=== PATIENT | male | born 1955 | race Caucasian/White ===

== ENCOUNTER 2021-01-17 02:18 | Inpatient (IN) ==
[2021-01-17 03:10] LABS: Basophils # 0.1 K/mcL (0.0-0.2); Basophils % 0.7 %; Eosinophils # 0.3 K/mcL (0.0-0.6); Eosinophils % 2.6 %; Hematocrit 33.9 % (37.5-50.1); Hemoglobin 10.9 g/dL (12.9-16.9); Immature Granulocytes % 1.5 % (0-4); Lymphocytes # 0.7 K/mcL (0.6-4.6); Lymphocytes % 6.3 %; Mean Corpuscular HGB Conc 32.2 g/dL (31.6-35.5); Mean Corpuscular Hemoglobin 29.5 pg (28.0-33.3); Mean Corpuscular Volume 91.9 fL (83.0-100.0); Mean Platelet Volume 8.6 fL (9.4-12.4); Monocytes # 1.2 K/mcL (0.0-1.3); Monocytes % 10.1 %; Neutrophils # 9.2 K/mcL (1.6-8.9); Platelet Count 300 K/mcL (140-400); Red Blood Count 3.69 M/mcL (4.19-5.50); Segmented Neutrophils % 78.8 %; White Blood Count 11.6 K/mcL (4.3-11.1)
[2021-01-17] MEDS ORDERED: Isovue-370 500 ML BOTTLE IVP ONE (03:13)
[2021-01-17 03:35] LABS: BUN/Creatinine Ratio 15 (6-26); Blood Urea Nitrogen 17 mg/dL (8-23); Calcium 9.2 mg/dL (8.6-10.3); Carbon Dioxide 23 mEq/L (23-29); Chloride 98 mEq/L (98-107); Glucose 240 mg/dL (70-105); Osmolality,Calculated 283 (280-300); Potassium 3.8 mEq/L (3.5-5.1); Sodium 132 mEq/L (136-145); Troponin I < 0.03 ng/mL (< 0.04); eGFR For African Americans > 60 (> 60); eGFR For Non-African Americans > 60 (> 60)
[2021-01-17] MEDS ORDERED: Piperacillin/Tazobactam 3.375 GM in 0.9 % Sodium Chloride Mini Bag 100 ML IVPB ONE (06:05)
[2021-01-17] MEDS ORDERED: Azithromycin 500 MG in 0.9 % Sodium Chloride 250 ML IVPB ONE (06:05)
[2021-01-17] MEDS ORDERED: Vancomycin 2,000 MG/520 ML IV.SOLN IVPB ONE (06:05)
[2021-01-17] MEDS ORDERED: Naloxone 0.4 MG/ML INJ IVP PRN (08:58)
[2021-01-17] MEDS ORDERED: Vancomycin (wt based) 1,000 MG VIAL IVPB SCH (09:00)
[2021-01-17] MEDS ORDERED: Ipratropium/Albuterol Neb 3 ML IH PRN (09:06)
[2021-01-17] MEDS ORDERED: *HR* Midazolam HCl 2 MG/2 ML VIAL IVP ONE (09:28)
[2021-01-17] MEDS ORDERED: *HR* Etomidate 20 MG/10 ML AMPUL IVP ONE (09:28)
[2021-01-17] MEDS ORDERED: *HR* Rocuronium Bromide 50 MG/5 ML VIAL IVP ONE (09:28)
[2021-01-17] MEDS ORDERED: *HR* Midazolam HCl 5 MG/5 ML VIAL IVP ONE (09:28)
[2021-01-17] MEDS ORDERED: *HR* Propofol 200 MG/20 ML VIAL IVP ONE (09:28)
[2021-01-17] MEDS ORDERED: Perflutren Lipid Microsphere 1.3 ML in 0.9 % Sodium Chloride 8.7 ML IVP PRN (10:08)
[2021-01-17 10:48] LABS: ABG Base Excess 0 mEq/L (-2 to 3); ABG HCO3 24 mEq/L (21-27); ABG Oxygen Saturation 96 % (95-98); ABG PCO2 36 mmHg (35-45); ABG PH 7.43 pH Units (7.32-7.45); ABG PO2 81 mmHg (85-104); ABG TCO2 25 mEq/L (20-26); Blood Gas Modality AVAPS; Blood Gas VT 500 cc
[2021-01-17] MEDS ORDERED: Furosemide 40 MG/4 ML VIAL ONE (12:04)
[2021-01-17] MEDS: Furosemide 40 MG/4 ML VIAL IVP ONE (12:06)
[2021-01-17 15:03] LABS: Adenovirus Not Detected (Not Detect); Bordetella Pertussis Not Detected (Not Detect); Chlamydophila pneumoniae Not Detected (Not Detect); Coronavirus 229E Not Detected (Not Detect); Coronavirus HKU1 Not Detected (Not Detect); Coronavirus NL63 Not Detected (Not Detect); Coronavirus OC43 Not Detected (Not Detect); Human Metapneumovirus Not Detected (Not Detect); Human Rhinovirus/Enterovirus Not Detected (Not Detect); Influenza A Subtype 2009 H1 Not Detected (Not Detect); Influenza B Not Detected (Not Detect); Mycoplasma pneumoniae Not Detected (Not Detect); Parainfluenza Virus 1 Not Detected (Not Detect); Parainfluenza Virus 2 Not Detected (Not Detect); Parainfluenza Virus 3 Not Detected (Not Detect); Parainfluenza Virus 4 Not Detected (Not Detect); Respiratory Syncytial Virus Not Detected (Not Detect); SARS-CoV-2 Not Detected (Not Detect)
[2021-01-17] MEDS: Acetaminophen 325 MG TABLET PO PRN ×2 (16:07→23:31)
[2021-01-17] MEDS: Piperacillin/Tazobactam 3.375 GM in 0.9 % Sodium Chloride Mini Bag 100 ML IVPB SCH ×2 (16:08→23:32)
[2021-01-17] MEDS ORDERED: Albuterol 2.5 MG/3 ML NEBULIZER IH PRN (16:11)
[2021-01-17] MEDS: Famotidine 20 MG TABLET PO SCH (16:57)
[2021-01-17] MEDS: *HR* Heparin 5,000 UNIT/ML VIAL SQ SCH (17:23)
[2021-01-17] MEDS: amLODIPine 5 MG TABLET PO SCH (19:58)
[2021-01-17] MEDS: lisinopriL 10 MG TABLET PO SCH (19:58)
[2021-01-17] MEDS: traZODone 50 MG TABLET PO SCH (19:58)
[2021-01-17] MEDS: Vancomycin 1,750 MG/517.5 ML IV.SOLN IVPB SCH (21:24)
[2021-01-17] MEDS: Ipratropium/Albuterol Neb 3 ML IH SCH (21:54)
[2021-01-18] MEDS: Ipratropium/Albuterol Neb 3 ML IH SCH ×4 (03:49→21:57)
[2021-01-18 04:16] LABS: Basophils # 0.1 K/mcL (0.0-0.2); Basophils % 0.7 %; Eosinophils # 0.2 K/mcL (0.0-0.6); Eosinophils % 1.7 %; Hematocrit 32.3 % (37.5-50.1); Hematocrit 32.7 % (37.5-50.1); Hemoglobin 10.4 g/dL (12.9-16.9); Hemoglobin 10.5 g/dL (12.9-16.9); Immature Granulocytes % 1.2 % (0-4); Lymphocytes % 9.3 %; Mean Corpuscular HGB Conc 32.1 g/dL (31.6-35.5); Mean Corpuscular HGB Conc 32.2 g/dL (31.6-35.5); Mean Corpuscular Hemoglobin 29.6 pg (28.0-33.3); Mean Corpuscular Hemoglobin 30.4 pg (28.0-33.3); Mean Corpuscular Volume 92.1 fL (83.0-100.0); Mean Corpuscular Volume 94.4 fL (83.0-100.0); Mean Platelet Volume 8.3 fL (9.4-12.4); Mean Platelet Volume 8.4 fL (9.4-12.4); Monocytes % 9.2 %; Neutrophils # 8.5 K/mcL (1.6-8.9); Platelet Count 299 K/mcL (140-400); Platelet Count 305 K/mcL (140-400); Red Blood Count 3.42 M/mcL (4.19-5.50); Red Blood Count 3.55 M/mcL (4.19-5.50); Red Cell Distribution Width 14.2 % (11.5-14.5); Red Cell Distribution Width 14.3 % (11.5-14.5); Segmented Neutrophils % 77.9 %; White Blood Count 10.9 K/mcL (4.3-11.1); White Blood Count 11.1 K/mcL (4.3-11.1)
[2021-01-18 04:26] LABS: INR 1.4; Prothrombin Time 16.1 Seconds (9.4-12.1)
[2021-01-18 04:30] LABS: VBG Ionized Calcium 1.11 mmol/L (1.15-1.35)
[2021-01-18 04:32] LABS: D-Dimer 1595 ng/mLFEU (0-500)
[2021-01-18 04:34] LABS: Alanine Aminotransferase 14 Units/L (7-52); Albumin/Globulin Ratio 0.8 (1.1-2.2); Alkaline Phosphatase 45 Units/L (34-104); Aspartate Amino Transferase 14 Units/L (13-39); BUN/Creatinine Ratio 14 (6-26); Bilirubin,Total 0.7 mg/dL (0.3-1.0); Blood Urea Nitrogen 16 mg/dL (8-23); Calcium 8.9 mg/dL (8.6-10.3); Carbon Dioxide 26 mEq/L (23-29); Chloride 100 mEq/L (98-107); Fibrinogen > 1000 mg/dL (169-393); Globulin 3.6 g/dL (2.4-3.5); Glucose 99 mg/dL (70-105); Osmolality,Calculated 279 (280-300); Potassium 4.2 mEq/L (3.5-5.1); Sodium 134 mEq/L (136-145); Total Protein 6.6 g/dL (6.4-8.9); eGFR For African Americans > 60 (> 60); eGFR For Non-African Americans > 60 (> 60)
[2021-01-18 04:36] LABS: BUN/Creatinine Ratio 13 (6-26); Blood Urea Nitrogen 16 mg/dL (8-23); Calcium 8.9 mg/dL (8.6-10.3); Carbon Dioxide 25 mEq/L (23-29); Chloride 100 mEq/L (98-107); Glucose 98 mg/dL (70-105); Osmolality,Calculated 279 (280-300); Potassium 4.2 mEq/L (3.5-5.1); Sodium 134 mEq/L (136-145); eGFR For African Americans > 60 (> 60); eGFR For Non-African Americans > 60 (> 60)
[2021-01-18 04:56] LABS: Alanine Aminotransferase 13 Units/L (7-52); Albumin 2.9 g/dL (3.5-5.7); Albumin/Globulin Ratio 0.8 (1.1-2.2); Alkaline Phosphatase 45 Units/L (34-104); Aspartate Amino Transferase 14 Units/L (13-39); Bilirubin,Direct 0.2 mg/dL (0.0-0.2); Bilirubin,Indirect 0.4 mg/dL (0.0-1.0); Bilirubin,Total 0.6 mg/dL (0.3-1.0); C-Reactive Protein > 300 mg/L (Less than 10); Globulin 3.5 g/dL (2.4-3.5); Lactate Dehydrogenase 233 Units/L (140-271); Magnesium 1.9 mg/dL (1.6-2.6); Phosphorous 3.8 mg/dL (2.7-4.5); Total Protein 6.4 g/dL (6.4-8.9)
[2021-01-18] MEDS: *HR* Heparin 5,000 UNIT/ML VIAL SQ SCH ×2 (05:31→21:47)
[2021-01-18] MEDS: Azithromycin 500 MG in 0.9 % Sodium Chloride 250 ML IVPB SCH (05:33)
[2021-01-18] MEDS ORDERED: Furosemide 40 MG/4 ML VIAL IVP ONE (07:00)
[2021-01-18] MEDS ORDERED: *HR* Midazolam HCl 5 MG/5 ML VIAL IVP ONE ×2 (08:01→08:14)
[2021-01-18] MEDS ORDERED: Lidocaine -MPF 2% 5 ML VIAL ONE (08:18)
[2021-01-18] MEDS: Piperacillin/Tazobactam 3.375 GM in 0.9 % Sodium Chloride Mini Bag 100 ML IVPB SCH ×3 (09:25→23:36)
[2021-01-18] MEDS: Furosemide 40 MG/4 ML VIAL IVP ONE (09:26)
[2021-01-18] MEDS: lisinopriL 10 MG TABLET PO SCH (09:26)
[2021-01-18] MEDS: Famotidine 20 MG TABLET PO SCH (09:26)
[2021-01-18] MEDS: Multivit/Ca/Min/Fe/FA 1 TAB TABLET PO SCH (09:26)
[2021-01-18] MEDS: Dexmedetomidine HCl 400 MCG/100 ML MLS IVC SCH ×2 (09:27→21:44)
[2021-01-18] MEDS: Aspirin Enteric Coated 81 MG Tablet PO SCH (09:27)
[2021-01-18] MEDS: amLODIPine 5 MG TABLET PO SCH (09:30)
[2021-01-18] MEDS: Acetaminophen 325 MG TABLET PO PRN ×3 (09:40→23:08)
[2021-01-18 14:38] LABS: Appearance of Body Fluid Cloudy (Clear); Volume of Body Fluid 19 mL
[2021-01-18] MEDS ORDERED: Saline Nasal Spray 44 ML BOTTLE NS PRN (15:49)
[2021-01-18] MEDS: traZODone 50 MG TABLET PO SCH (19:31)
[2021-01-18] MEDS: Vancomycin 1,750 MG/517.5 ML IV.SOLN IVPB SCH (21:43)
[2021-01-19] MEDS: Ipratropium/Albuterol Neb 3 ML IH SCH ×4 (03:28→22:04)
[2021-01-19 03:55] LABS: ABG Base Excess -2 mEq/L (-2 to 3); ABG HCO3 24 mEq/L (21-27); ABG Oxygen Saturation 87 % (95-98); ABG PCO2 46 mmHg (35-45); ABG PH 7.33 pH Units (7.32-7.45); ABG PO2 57 mmHg (85-104); ABG TCO2 25 mEq/L (20-26); Blood Gas VT 500 cc
[2021-01-19] MEDS ORDERED: Dexamethasone 4 MG/ML VIAL IVP ONE (03:55)
[2021-01-19] MEDS ORDERED: Furosemide 40 MG/4 ML VIAL IVP ONE (04:07)
[2021-01-19] MEDS ORDERED: Furosemide 40 MG/4 ML VIAL ONE (04:11)
[2021-01-19] MEDS ORDERED: 0.9 % Sodium Chloride 1,000 ML ONE (04:16)
[2021-01-19 04:21] LABS: Basophils # 0.1 K/mcL (0.0-0.2); Basophils % 0.8 %; Eosinophils # 0.2 K/mcL (0.0-0.6); Eosinophils % 1.7 %; Hematocrit 35.3 % (37.5-50.1); Hemoglobin 11.2 g/dL (12.9-16.9); Immature Granulocytes % 1.3 % (0-4); Lymphocytes # 1.3 K/mcL (0.6-4.6); Lymphocytes % 9.2 %; Mean Corpuscular HGB Conc 31.7 g/dL (31.6-35.5); Mean Corpuscular Hemoglobin 29.8 pg (28.0-33.3); Mean Corpuscular Volume 93.9 fL (83.0-100.0); Mean Platelet Volume 8.4 fL (9.4-12.4); Monocytes # 1.5 K/mcL (0.0-1.3); Monocytes % 10.4 %; Neutrophils # 11.1 K/mcL (1.6-8.9); Platelet Count 386 K/mcL (140-400); Red Blood Count 3.76 M/mcL (4.19-5.50); Red Cell Distribution Width 14.4 % (11.5-14.5); Segmented Neutrophils % 76.6 %; White Blood Count 14.5 K/mcL (4.3-11.1)
[2021-01-19] MEDS ORDERED: *HR* Midazolam HCl 5 MG/5 ML VIAL IVP ONE (04:23)
[2021-01-19 04:31] LABS: INR 1.4; Prothrombin Time 15.8 Seconds (9.4-12.1)
[2021-01-19 04:39] LABS: C-Reactive Protein > 300 mg/L (Less than 10); Lactate Dehydrogenase 335 Units/L (140-271); Magnesium 1.8 mg/dL (1.6-2.6)
[2021-01-19] MEDS: FentaNYL (PF) 1,000 MCG/100 ML IV.SOLN IVC SCH ×4 (04:43→20:37)
[2021-01-19 05:42] LABS: ABG Base Excess -1 mEq/L (-2 to 3); ABG HCO3 27 mEq/L (21-27); ABG Oxygen Saturation 90 % (95-98); ABG PCO2 63 mmHg (35-45); ABG PH 7.25 pH Units (7.32-7.45); ABG PO2 71 mmHg (85-104); ABG TCO2 29 mEq/L (20-26); Blood Gas Modality ASSIST CONTROL; Blood Gas VT 500 cc
[2021-01-19] MEDS: Cisatracurium 200 MG in 0.9 % Sodium Chloride 180 ML IVC SCH (06:22)
[2021-01-19] MEDS: *HR* Heparin 5,000 UNIT/ML VIAL SQ SCH ×3 (06:50→22:19)
[2021-01-19] MEDS: Azithromycin 500 MG in 0.9 % Sodium Chloride 250 ML IVPB SCH (06:50)
[2021-01-19] MEDS: Aspirin Enteric Coated 81 MG Tablet PO SCH (07:43)
[2021-01-19] MEDS: Chlorhexidine Rinse 15 ML MOUTHWASH MM SCH ×2 (07:43→19:36)
[2021-01-19] MEDS: Famotidine 20 MG TABLET PO SCH (07:43)
[2021-01-19] MEDS: Pantoprazole 40 MG VIAL IVP SCH (07:43)
[2021-01-19] MEDS: Multivit/Ca/Min/Fe/FA 1 TAB TABLET PO SCH (07:43)
[2021-01-19] MEDS: Piperacillin/Tazobactam 3.375 GM in 0.9 % Sodium Chloride Mini Bag 100 ML IVPB SCH ×2 (07:44→17:31)
[2021-01-19] MEDS: Artificial Tears SOLN 15 ML BOTTLE BOTH EYES SCH ×4 (07:45→21:28)
[2021-01-19] MEDS: Dexamethasone 4 MG/ML VIAL IVP SCH (09:04)
[2021-01-19] MEDS: Dexmedetomidine HCl 400 MCG/100 ML MLS IVC SCH ×2 (09:05→19:36)
[2021-01-19] MEDS: Norepinephrine 4 MG/254 ML IV.SOLN IVC SCH ×2 (09:16→20:15)
[2021-01-19 12:00] LABS: BUN/Creatinine Ratio 16 (6-26); Blood Urea Nitrogen 23 mg/dL (8-23); Calcium 8.7 mg/dL (8.6-10.3); Carbon Dioxide 22 mEq/L (23-29); Chloride 98 mEq/L (98-107); Glucose 104 mg/dL (70-105); Osmolality,Calculated 288 (280-300); Potassium 4.2 mEq/L (3.5-5.1); Sodium 137 mEq/L (136-145); eGFR For African Americans 59 (> 60); eGFR For Non-African Americans 49 (> 60)
[2021-01-19] MEDS: traZODone 50 MG TABLET PO SCH (19:36)
[2021-01-19] MEDS: Vancomycin 1,750 MG/517.5 ML IV.SOLN IVPB SCH (22:19)
[2021-01-20] MEDS: Piperacillin/Tazobactam 3.375 GM in 0.9 % Sodium Chloride Mini Bag 100 ML IVPB SCH ×4 (00:28→23:50)
[2021-01-20] MEDS: Artificial Tears SOLN 15 ML BOTTLE BOTH EYES SCH ×7 (00:28→23:50)
[2021-01-20] MEDS: FentaNYL (PF) 2,500 MCG/50 ML IV.SOLN IVC SCH ×3 (02:08→20:08)
[2021-01-20] MEDS: Ipratropium/Albuterol Neb 3 ML IH SCH ×4 (03:48→21:35)
[2021-01-20 04:06] LABS: Basophils % 0.2 %; Eosinophils % 0.2 %; Hematocrit 28.1 % (37.5-50.1); Hemoglobin 8.8 g/dL (12.9-16.9); Immature Granulocytes % 1.4 % (0-4); Immature Platelets 2.1 % (1.1-6.1); Lymphocytes # 0.4 K/mcL (0.6-4.6); Lymphocytes % 3.7 %; Mean Corpuscular HGB Conc 31.3 g/dL (31.6-35.5); Mean Corpuscular Hemoglobin 29.6 pg (28.0-33.3); Mean Corpuscular Volume 94.6 fL (83.0-100.0); Mean Platelet Volume 9.3 fL (9.4-12.4); Monocytes # 0.5 K/mcL (0.0-1.3); Monocytes % 4.2 %; Platelet Count 282 K/mcL (140-400); Red Blood Count 2.97 M/mcL (4.19-5.50); Red Cell Distribution Width 14.2 % (11.5-14.5); Segmented Neutrophils % 90.3 %
[2021-01-20 04:14] LABS: INR 1.2; Prothrombin Time 14.3 Seconds (9.4-12.1)
[2021-01-20 04:21] LABS: Neutrophils # 10.8 K/mcL (1.6-8.9)
[2021-01-20 04:22] LABS: Phosphorous 5.6 mg/dL (2.7-4.5); Platelet Estimate Normal (Normal)
[2021-01-20 04:23] LABS: ABG Base Excess -1 mEq/L (-2 to 3); ABG HCO3 27 mEq/L (21-27); ABG Oxygen Saturation 100 % (95-98); ABG PCO2 58 mmHg (35-45); ABG PH 7.27 pH Units (7.32-7.45); ABG PO2 255 mmHg (85-104); ABG TCO2 28 mEq/L (20-26); Blood Gas Modality ASSIST CONTROL; Blood Gas VT 480 cc
[2021-01-20] MEDS: Cisatracurium 200 MG in 0.9 % Sodium Chloride 180 ML IVC SCH (05:50)
[2021-01-20] MEDS: *HR* Heparin 5,000 UNIT/ML VIAL SQ SCH ×3 (06:08→21:11)
[2021-01-20] MEDS: Azithromycin 500 MG in 0.9 % Sodium Chloride 250 ML IVPB SCH (06:08)
[2021-01-20 06:23] LABS: Calcium 8.5 mg/dL (8.6-10.3); Potassium 4.3 mEq/L (3.5-5.1)
[2021-01-20] MEDS: Pantoprazole 40 MG VIAL IVP SCH (07:59)
[2021-01-20] MEDS: Chlorhexidine Rinse 15 ML MOUTHWASH MM SCH ×2 (08:00→19:26)
[2021-01-20] MEDS: Dexamethasone 4 MG/ML VIAL IVP SCH (08:00)
[2021-01-20] MEDS: Aspirin Enteric Coated 81 MG Tablet PO SCH (08:00)
[2021-01-20] MEDS: Multivit/Ca/Min/Fe/FA 1 TAB TABLET PO SCH (08:01)
[2021-01-20] MEDS: Famotidine 20 MG TABLET PO SCH (08:01)
[2021-01-20] MEDS ORDERED: Perflutren Lipid Microsphere 1.3 ML in 0.9 % Sodium Chloride 8.7 ML IVP PRN (10:10)
[2021-01-20] MEDS: Doxycycline 100 MG in 0.9 % Sodium Chloride Mini Bag 100 ML IVPB SCH ×2 (11:36→22:20)
[2021-01-20] MEDS: WATER IVPB SCH ×2 (11:46→17:23)
[2021-01-20] MEDS: D5 IVPB SCH ×2 (11:46→17:23)
[2021-01-20] MEDS: TRIMETH IVPB SCH ×2 (11:46→17:23)
[2021-01-20] MEDS: SULFAMETHOXAZOLE IVPB SCH ×2 (11:46→17:23)
[2021-01-20] MEDS ORDERED: *HR* Dextrose 50 % in Water (Vial) 50 ML VIAL IVP PRN (14:16)
[2021-01-20] MEDS ORDERED: Dextrose Gel 15 GM/37.5 ML TUBE PO PRN ×2 (14:16)
[2021-01-20] MEDS ORDERED: D5% in Water 1,000 ML IVC PRN (14:16)
[2021-01-20] MEDS: MethylPREDNISolone 40 MG/ML VIAL IVP SCH ×2 (15:50→23:51)
[2021-01-20] MEDS: Insulin LISPRO 300 UNITS/3 ML VIAL SUBQ SCH ×3 (17:21→23:51)
[2021-01-20] MEDS ORDERED: WATER IVPB SCH (18:00)
[2021-01-20] MEDS ORDERED: SULFAMETHOXAZOLE IVPB SCH (18:00)
[2021-01-20] MEDS ORDERED: TRIMETH IVPB SCH (18:00)
[2021-01-20] MEDS ORDERED: D5 IVPB SCH (18:00)
[2021-01-20] MEDS ORDERED: MethylPREDNISolone 40 MG/ML VIAL IVP SCH (18:00)
[2021-01-20] MEDS: traZODone 50 MG TABLET PO SCH (19:26)
[2021-01-20] MEDS: Vancomycin 1,750 MG/517.5 ML IV.SOLN IVPB SCH (22:20)
[2021-01-20] MEDS: Dexmedetomidine HCl 400 MCG/100 ML MLS IVC SCH (22:30)
[2021-01-21] MEDS: SULFAMETHOXAZOLE IVPB SCH ×3 (03:09→17:36)
[2021-01-21] MEDS: D5 IVPB SCH ×3 (03:09→17:36)
[2021-01-21] MEDS: WATER IVPB SCH ×3 (03:09→17:36)
[2021-01-21] MEDS: TRIMETH IVPB SCH ×3 (03:09→17:36)
[2021-01-21] MEDS: Ipratropium/Albuterol Neb 3 ML IH SCH ×4 (03:29→21:42)
[2021-01-21 04:23] LABS: Basophils % 0.1 %; Hematocrit 27.8 % (37.5-50.1); Hemoglobin 8.8 g/dL (12.9-16.9); Immature Granulocytes % 1.2 % (0-4); Lymphocytes # 0.5 K/mcL (0.6-4.6); Lymphocytes % 2.9 %; Mean Corpuscular HGB Conc 31.7 g/dL (31.6-35.5); Mean Corpuscular Hemoglobin 30.4 pg (28.0-33.3); Mean Corpuscular Volume 96.2 fL (83.0-100.0); Mean Platelet Volume 8.8 fL (9.4-12.4); Monocytes # 0.5 K/mcL (0.0-1.3); Monocytes % 2.9 %; Neutrophils # 14.4 K/mcL (1.6-8.9); Platelet Count 322 K/mcL (140-400); Red Blood Count 2.89 M/mcL (4.19-5.50); Red Cell Distribution Width 14.1 % (11.5-14.5); Segmented Neutrophils % 92.9 %; White Blood Count 15.5 K/mcL (4.3-11.1)
[2021-01-21 04:36] LABS: ABG Base Excess -2 mEq/L (-2 to 3); ABG HCO3 26 mEq/L (21-27); ABG Oxygen Saturation 93 % (95-98); ABG PCO2 60 mmHg (35-45); ABG PH 7.24 pH Units (7.32-7.45); ABG PO2 82 mmHg (85-104); ABG TCO2 27 mEq/L (20-26); Blood Gas Modality ASSIST CONTROL; Blood Gas VT 480 cc
[2021-01-21 04:43] LABS: Calcium 8.2 mg/dL (8.6-10.3); Magnesium 3.2 mg/dL (1.6-2.6); Phosphorous 3.4 mg/dL (2.7-4.5); Potassium 3.3 mEq/L (3.5-5.1)
[2021-01-21] MEDS: Insulin LISPRO 300 UNITS/3 ML VIAL SUBQ SCH ×7 (05:33→23:23)
[2021-01-21] MEDS: Artificial Tears SOLN 15 ML BOTTLE BOTH EYES SCH ×6 (05:33→23:23)
[2021-01-21] MEDS: Cisatracurium 200 MG in 0.9 % Sodium Chloride 180 ML IVC SCH (05:35)
[2021-01-21] MEDS: *HR* Heparin 5,000 UNIT/ML VIAL SQ SCH ×3 (05:35→19:31)
[2021-01-21] MEDS: Norepinephrine 4 MG/254 ML IV.SOLN IVC SCH ×4 (06:16→21:59)
[2021-01-21] MEDS: MethylPREDNISolone 40 MG/ML VIAL IVP SCH ×3 (08:39→23:23)
[2021-01-21] MEDS: Chlorhexidine Rinse 15 ML MOUTHWASH MM SCH ×2 (08:39→19:30)
[2021-01-21] MEDS: Pantoprazole 40 MG VIAL IVP SCH (08:40)
[2021-01-21] MEDS: Piperacillin/Tazobactam 3.375 GM in 0.9 % Sodium Chloride Mini Bag 100 ML IVPB SCH ×3 (08:40→23:24)
[2021-01-21] MEDS: Aspirin 81 MG TAB.CHEW GTUBE SCH (08:40)
[2021-01-21] MEDS: Multivit/Ca/Min/Fe/FA 1 TAB TABLET PO SCH (08:40)
[2021-01-21] MEDS: Doxycycline 100 MG in 0.9 % Sodium Chloride Mini Bag 100 ML IVPB SCH ×2 (09:51→19:31)
[2021-01-21] MEDS ORDERED: *HR* Etomidate 20 MG/10 ML AMPUL IVP ONE (09:51)
[2021-01-21] MEDS: FentaNYL (PF) 2,500 MCG/50 ML IV.SOLN IVC SCH (11:13)
[2021-01-21] MEDS: Dexmedetomidine HCl 400 MCG/100 ML MLS IVC SCH (13:19)
[2021-01-21 17:24] LABS: ABG Base Excess -3 mEq/L (-2 to 3); ABG HCO3 25 mEq/L (21-27); ABG Oxygen Saturation 96 % (95-98); ABG PCO2 60 mmHg (35-45); ABG PH 7.22 pH Units (7.32-7.45); ABG PO2 98 mmHg (85-104); ABG TCO2 27 mEq/L (20-26); Blood Gas Modality AF; Blood Gas VT 480 cc
[2021-01-21] MEDS: traZODone 50 MG TABLET PO SCH (19:30)
[2021-01-21 19:33] LABS: ABG Base Excess -4 mEq/L (-2 to 3); ABG HCO3 23 mEq/L (21-27); ABG Oxygen Saturation 96 % (95-98); ABG PCO2 50 mmHg (35-45); ABG PH 7.28 pH Units (7.32-7.45); ABG PO2 91 mmHg (85-104); ABG TCO2 25 mEq/L (20-26); Blood Gas Modality ASSIST CONTROL; Blood Gas VT 480 cc
[2021-01-22] MEDS: Dexmedetomidine HCl 400 MCG/100 ML MLS IVC SCH ×3 (00:35→23:07)
[2021-01-22] MEDS: WATER IVPB SCH (03:01)
[2021-01-22] MEDS: TRIMETH IVPB SCH (03:01)
[2021-01-22] MEDS: SULFAMETHOXAZOLE IVPB SCH (03:01)
[2021-01-22] MEDS: D5 IVPB SCH (03:01)
[2021-01-22] MEDS: Insulin LISPRO 300 UNITS/3 ML VIAL SUBQ SCH ×6 (03:25→23:39)
[2021-01-22] MEDS: FentaNYL (PF) 2,500 MCG/50 ML IV.SOLN IVC SCH ×2 (03:25→20:05)
[2021-01-22] MEDS: Artificial Tears SOLN 15 ML BOTTLE BOTH EYES SCH ×6 (03:26→23:07)
[2021-01-22] MEDS: Ipratropium/Albuterol Neb 3 ML IH SCH ×4 (03:39→22:40)
[2021-01-22 03:44] LABS: Basophils % 0.1 %; Hematocrit 26.4 % (37.5-50.1); Hemoglobin 8.6 g/dL (12.9-16.9); Immature Granulocytes % 1.3 % (0-4); Lymphocytes # 0.5 K/mcL (0.6-4.6); Lymphocytes % 3.6 %; Mean Corpuscular HGB Conc 32.6 g/dL (31.6-35.5); Mean Corpuscular Hemoglobin 30.4 pg (28.0-33.3); Mean Corpuscular Volume 93.3 fL (83.0-100.0); Mean Platelet Volume 8.8 fL (9.4-12.4); Monocytes # 0.5 K/mcL (0.0-1.3); Monocytes % 4.1 %; Neutrophils # 11.7 K/mcL (1.6-8.9); Platelet Count 299 K/mcL (140-400); Red Blood Count 2.83 M/mcL (4.19-5.50); Red Cell Distribution Width 14.5 % (11.5-14.5); Segmented Neutrophils % 90.9 %; White Blood Count 12.8 K/mcL (4.3-11.1)
[2021-01-22 04:02] LABS: ABG Base Excess -2 mEq/L (-2 to 3); ABG HCO3 25 mEq/L (21-27); ABG Oxygen Saturation 98 % (95-98); ABG PCO2 49 mmHg (35-45); ABG PH 7.32 pH Units (7.32-7.45); ABG PO2 109 mmHg (85-104); ABG TCO2 27 mEq/L (20-26); Blood Gas Modality ASSIST CONTROL; Blood Gas VT 480 cc
[2021-01-22 04:03] LABS: Albumin 2.7 g/dL (3.5-5.7); Albumin/Globulin Ratio 0.9 (1.1-2.2); Bilirubin,Direct 0.2 mg/dL (0.0-0.2); Bilirubin,Indirect 0.1 mg/dL (0.0-1.0); Bilirubin,Total 0.3 mg/dL (0.3-1.0); Globulin 3.1 g/dL (2.4-3.5); Total Protein 5.8 g/dL (6.4-8.9)
[2021-01-22 04:04] LABS: Calcium 7.8 mg/dL (8.6-10.3); Magnesium 2.9 mg/dL (1.6-2.6); Phosphorous 2.5 mg/dL (2.7-4.5)
[2021-01-22] MEDS: *HR* Heparin 5,000 UNIT/ML VIAL SQ SCH ×3 (05:03→22:00)
[2021-01-22] MEDS: Pantoprazole 40 MG VIAL IVP SCH (07:27)
[2021-01-22] MEDS: MethylPREDNISolone 40 MG/ML VIAL IVP SCH ×3 (07:27→23:06)
[2021-01-22] MEDS: Piperacillin/Tazobactam 3.375 GM in 0.9 % Sodium Chloride Mini Bag 100 ML IVPB SCH ×3 (07:28→23:06)
[2021-01-22] MEDS: Chlorhexidine Rinse 15 ML MOUTHWASH MM SCH ×2 (07:28→20:06)
[2021-01-22] MEDS: Multivit/Ca/Min/Fe/FA 1 TAB TABLET PO SCH (07:29)
[2021-01-22] MEDS: Aspirin 81 MG TAB.CHEW GTUBE SCH (07:29)
[2021-01-22] MEDS: Doxycycline 100 MG in 0.9 % Sodium Chloride Mini Bag 100 ML IVPB SCH ×2 (09:38→21:59)
[2021-01-22] MEDS: Docusate Oral Soln 100 MG/10 ML UDC GTUBE SCH ×2 (10:58→20:06)
[2021-01-22 11:40] LABS: VBG Ionized Calcium 1.06 mmol/L (1.15-1.35)
[2021-01-22] MEDS: Calcium Gluconate 1gm/50mL 1 GM/50 ML BAG IVPB PRN ×2 (12:05→22:00)
[2021-01-22 12:10] LABS: Bilirubin,Urine Negative (Negative); Blood,Urine Negative (Negative); Clarity,Urine Clear (Clear); Color,Urine Light-Yellow (Yellow); Glucose,Urine (UA) Normal (Normal); Hyaline Casts,Urine Many per lpf (None Seen); Ketones,Urine Negative (Negative); Leukocyte Esterase,Urine Negative (Negative); Mucus,Urine Few per lpf (None-Few); Nitrite,Urine Negative (Negative); Protein,Urine 30 mg/dL (Neg-Trace); RBC,Urine 0-3 per hpf (0-3); Specific Gravity,Urine 1.025 (1.010-1.025); Urobilinogen,Urine Normal (Normal); WBC,Urine 0-3 per hpf (0-3)
[2021-01-22 12:21] LABS: Sodium, Urine 49.7 mEq/L
[2021-01-22] MEDS ORDERED: Potassium Phosphate 44 MEQ in 0.9 % Sodium Chloride 250 ML IVPB PRN (13:21)
[2021-01-22] MEDS: Albumin 25% 25gram/100mL 25 GM/100 ML IV.SOLN IVPB SCH ×2 (13:41→20:06)
[2021-01-22 14:57] LABS: Hepatitis C Virus Antibody Nonreactive (Nonreactive)
[2021-01-22 14:58] LABS: Hepatitis B Core IgM Nonreactive (Nonreactive)
[2021-01-22 14:59] LABS: Hepatitis A Antibody IgM Nonreactive (Nonreactive)
[2021-01-22 15:44] LABS: Calcium 7.9 mg/dL (8.6-10.3); Potassium 4.9 mEq/L (3.5-5.1)
[2021-01-22 19:25] LABS: Hepatitis B Surface Antigen Nonreactive (Nonreactive)
[2021-01-22] MEDS: traZODone 50 MG TABLET PO SCH (20:06)
[2021-01-22 20:08] LABS: VBG Ionized Calcium 1.05 mmol/L (1.15-1.35)
[2021-01-23 00:35] LABS: A.galactomannan Ag Index 0.03
[2021-01-23 04:05] LABS: Basophils % 0.1 %; Hematocrit 24.5 % (37.5-50.1); Hemoglobin 7.6 g/dL (12.9-16.9); Immature Granulocytes % 2.1 % (0-4); Lymphocytes # 0.5 K/mcL (0.6-4.6); Lymphocytes % 5.8 %; Mean Corpuscular Hemoglobin 29.1 pg (28.0-33.3); Mean Corpuscular Volume 93.9 fL (83.0-100.0); Mean Platelet Volume 9.1 fL (9.4-12.4); Monocytes # 0.5 K/mcL (0.0-1.3); Monocytes % 5.8 %; Neutrophils # 8.1 K/mcL (1.6-8.9); Platelet Count 282 K/mcL (140-400); Red Blood Count 2.61 M/mcL (4.19-5.50); Red Cell Distribution Width 15.2 % (11.5-14.5); Segmented Neutrophils % 86.2 %; White Blood Count 9.4 K/mcL (4.3-11.1)
[2021-01-23 04:12] LABS: INR 1.3; Prothrombin Time 14.5 Seconds (9.4-12.1)
[2021-01-23] MEDS: Ipratropium/Albuterol Neb 3 ML IH SCH ×4 (04:12→22:24)
[2021-01-23 04:23] LABS: Calcium 8.3 mg/dL (8.6-10.3); Magnesium 3.2 mg/dL (1.6-2.6); Phosphorous 6.2 mg/dL (2.7-4.5); Potassium 5.6 mEq/L (3.5-5.1)
[2021-01-23] MEDS: Artificial Tears SOLN 15 ML BOTTLE BOTH EYES SCH ×6 (04:26→23:12)
[2021-01-23] MEDS: Insulin LISPRO 300 UNITS/3 ML VIAL SUBQ SCH ×6 (04:27→23:12)
[2021-01-23 04:33] LABS: ABG Base Excess -2 mEq/L (-2 to 3); ABG HCO3 25 mEq/L (21-27); ABG Oxygen Saturation 100 % (95-98); ABG PCO2 48 mmHg (35-45); ABG PH 7.32 pH Units (7.32-7.45); ABG PO2 187 mmHg (85-104); ABG TCO2 26 mEq/L (20-26); Blood Gas Modality ASSIST CONTROL; Blood Gas VT 480 cc
[2021-01-23] MEDS: Albumin 25% 25gram/100mL 25 GM/100 ML IV.SOLN IVPB SCH ×3 (05:32→20:30)
[2021-01-23] MEDS: *HR* Heparin 5,000 UNIT/ML VIAL SQ SCH ×3 (05:33→21:13)
[2021-01-23 05:49] LABS: Albumin 3.1 g/dL (3.5-5.7); Albumin/Globulin Ratio 1.1 (1.1-2.2); Bilirubin,Indirect 0.2 mg/dL (0.0-1.0); Bilirubin,Total 0.2 mg/dL (0.3-1.0); Globulin 2.7 g/dL (2.4-3.5); Total Protein 5.8 g/dL (6.4-8.9)
[2021-01-23 07:13] LABS: Serine Protease-3 Antibody 2 AU/mL (0-19)
[2021-01-23 07:13] LABS: ANA IgG by ELISA NONE DETECTED (None Detected)
[2021-01-23] MEDS: MethylPREDNISolone 40 MG/ML VIAL IVP SCH ×3 (08:07→23:11)
[2021-01-23] MEDS: Piperacillin/Tazobactam 3.375 GM in 0.9 % Sodium Chloride Mini Bag 100 ML IVPB SCH ×3 (08:07→23:11)
[2021-01-23] MEDS: Pantoprazole 40 MG VIAL IVP SCH ×2 (08:07→17:40)
[2021-01-23] MEDS: Chlorhexidine Rinse 15 ML MOUTHWASH MM SCH ×2 (09:02→20:30)
[2021-01-23] MEDS: Aspirin 81 MG TAB.CHEW GTUBE SCH (09:02)
[2021-01-23 09:59] LABS: Hematocrit 24.1 % (37.5-50.1); Hemoglobin 7.5 g/dL (12.9-16.9)
[2021-01-23] MEDS: Docusate Oral Soln 100 MG/10 ML UDC GTUBE SCH ×2 (09:59→20:30)
[2021-01-23] MEDS: Multivit/Ca/Min/Fe/FA 1 TAB TABLET PO SCH (09:59)
[2021-01-23] MEDS: Doxycycline 100 MG in 0.9 % Sodium Chloride Mini Bag 100 ML IVPB SCH (10:06)
[2021-01-23] MEDS: Dexmedetomidine HCl 400 MCG/100 ML MLS IVC SCH ×2 (10:55→19:31)
[2021-01-23] MEDS: FentaNYL (PF) 2,500 MCG/50 ML IV.SOLN IVC SCH ×2 (10:55→23:06)
[2021-01-23 12:47] LABS: Hematocrit 24.3 % (37.5-50.1); Hemoglobin 7.8 g/dL (12.9-16.9)
[2021-01-23 13:01] LABS: Calcium 8.6 mg/dL (8.6-10.3); Potassium 5.4 mEq/L (3.5-5.1)
[2021-01-23] MEDS: SODIUM ZIRCONIUM CYCLOSILICATE 5 GM POWD.PACK PO SCH (13:33)
[2021-01-23 15:53] LABS: Vitamin D 25 Hydroxy 20 ng/mL (30-80)
[2021-01-23 16:08] LABS: Hematocrit 23.4 % (37.5-50.1); Hemoglobin 7.6 g/dL (12.9-16.9)
[2021-01-23] MEDS: traZODone 50 MG TABLET PO SCH (20:30)
[2021-01-23 21:08] LABS: Hematocrit 23.8 % (37.5-50.1); Hemoglobin 7.5 g/dL (12.9-16.9)
[2021-01-23 23:10] LABS: Hepatitis B Surface Antibody < 3.10 mIU/mL
[2021-01-23 23:20] LABS: Hepatitis B Surface Antigen Nonreactive (Nonreactive)
[2021-01-24] MEDS: Artificial Tears SOLN 15 ML BOTTLE BOTH EYES SCH ×6 (03:00→23:16)
[2021-01-24] MEDS: Insulin LISPRO 300 UNITS/3 ML VIAL SUBQ SCH ×6 (03:29→23:16)
[2021-01-24] MEDS: Norepinephrine 4 MG/254 ML IV.SOLN IVC SCH (03:29)
[2021-01-24] MEDS: Ipratropium/Albuterol Neb 3 ML IH SCH ×4 (03:40→21:32)
[2021-01-24 04:09] LABS: Basophils % 0.2 %; Eosinophils % 0.2 %; Hematocrit 24.3 % (37.5-50.1); Hemoglobin 7.7 g/dL (12.9-16.9); Immature Granulocytes % 4.7 % (0-4); Lymphocytes # 0.7 K/mcL (0.6-4.6); Lymphocytes % 8.5 %; Mean Corpuscular HGB Conc 31.7 g/dL (31.6-35.5); Mean Corpuscular Volume 94.6 fL (83.0-100.0); Mean Platelet Volume 9.1 fL (9.4-12.4); Monocytes # 0.4 K/mcL (0.0-1.3); Monocytes % 5.5 %; Neutrophils # 6.5 K/mcL (1.6-8.9); Nucleated Red Blood Cells 0.2 /100 WBC (0); Platelet Count 304 K/mcL (140-400); Red Blood Count 2.57 M/mcL (4.19-5.50); Red Cell Distribution Width 15.5 % (11.5-14.5); Segmented Neutrophils % 80.9 %
[2021-01-24 04:34] LABS: Calcium 8.7 mg/dL (8.6-10.3); Magnesium 3.6 mg/dL (1.6-2.6); Phosphorous 7.2 mg/dL (2.7-4.5)
[2021-01-24 04:34] LABS: ABG Base Excess 0 mEq/L (-2 to 3); ABG HCO3 26 mEq/L (21-27); ABG Oxygen Saturation 96 % (95-98); ABG PCO2 48 mmHg (35-45); ABG PH 7.34 pH Units (7.32-7.45); ABG PO2 88 mmHg (85-104); ABG TCO2 27 mEq/L (20-26); Blood Gas Modality ASSIST CONTROL; Blood Gas VT 480 cc
[2021-01-24] MEDS: Albumin 25% 25gram/100mL 25 GM/100 ML IV.SOLN IVPB SCH (05:28)
[2021-01-24] MEDS: Dexmedetomidine HCl 400 MCG/100 ML MLS IVC SCH ×3 (05:29→20:35)
[2021-01-24] MEDS: *HR* Heparin 5,000 UNIT/ML VIAL SQ SCH ×3 (05:30→21:44)
[2021-01-24] MEDS: Pantoprazole 40 MG VIAL IVP SCH ×2 (05:30→18:13)
[2021-01-24] MEDS: Piperacillin/Tazobactam 3.375 GM in 0.9 % Sodium Chloride Mini Bag 100 ML IVPB SCH ×3 (07:35→23:17)
[2021-01-24] MEDS: Chlorhexidine Rinse 15 ML MOUTHWASH MM SCH ×2 (07:35→19:32)
[2021-01-24] MEDS: Aspirin 81 MG TAB.CHEW GTUBE SCH (07:36)
[2021-01-24] MEDS: Docusate Oral Soln 100 MG/10 ML UDC GTUBE SCH ×2 (07:36→19:32)
[2021-01-24] MEDS: MethylPREDNISolone 40 MG/ML VIAL IVP SCH ×2 (07:36→18:13)
[2021-01-24] MEDS: SODIUM ZIRCONIUM CYCLOSILICATE 5 GM POWD.PACK PO SCH ×3 (07:36→12:48)
[2021-01-24] MEDS: FentaNYL (PF) 2,500 MCG/50 ML IV.SOLN IVC SCH (12:11)
[2021-01-24] MEDS: traZODone 50 MG TABLET PO SCH (19:32)
[2021-01-25 03:48] LABS: Basophils % 0.3 %; Eosinophils # 0.2 K/mcL (0.0-0.6); Eosinophils % 1.6 %; Hematocrit 25.6 % (37.5-50.1); Hemoglobin 8.1 g/dL (12.9-16.9); Immature Granulocytes % 8.6 % (0-4); Lymphocytes # 1.2 K/mcL (0.6-4.6); Lymphocytes % 10.3 %; Mean Corpuscular HGB Conc 31.6 g/dL (31.6-35.5); Mean Corpuscular Hemoglobin 30.1 pg (28.0-33.3); Mean Corpuscular Volume 95.2 fL (83.0-100.0); Mean Platelet Volume 9.2 fL (9.4-12.4); Monocytes % 8.4 %; Neutrophils # 8.3 K/mcL (1.6-8.9); Platelet Count 314 K/mcL (140-400); Red Blood Count 2.69 M/mcL (4.19-5.50); Red Cell Distribution Width 15.7 % (11.5-14.5); Segmented Neutrophils % 70.8 %; White Blood Count 11.7 K/mcL (4.3-11.1)
[2021-01-25] MEDS: Ipratropium/Albuterol Neb 3 ML IH SCH ×4 (04:06→21:49)
[2021-01-25 04:11] LABS: Calcium 9.1 mg/dL (8.6-10.3); Phosphorous 5.2 mg/dL (2.7-4.5); Potassium 5.3 mEq/L (3.5-5.1)
[2021-01-25] MEDS: FentaNYL (PF) 2,500 MCG/50 ML IV.SOLN IVC SCH ×2 (04:20→17:58)
[2021-01-25] MEDS: Dexmedetomidine HCl 400 MCG/100 ML MLS IVC SCH ×3 (04:20→18:30)
[2021-01-25] MEDS: Insulin LISPRO 300 UNITS/3 ML VIAL SUBQ SCH ×5 (04:21→20:03)
[2021-01-25] MEDS: Artificial Tears SOLN 15 ML BOTTLE BOTH EYES SCH ×6 (04:21→23:45)
[2021-01-25 04:58] LABS: Anisocytosis 1+ (Not Present); Platelet Estimate Normal (Normal); Poikilocytosis 1+ (Not Present)
[2021-01-25] MEDS: *HR* Heparin 5,000 UNIT/ML VIAL SQ SCH ×2 (05:25→13:51)
[2021-01-25] MEDS: MethylPREDNISolone 40 MG/ML VIAL IVP SCH (05:26)
[2021-01-25] MEDS: Pantoprazole 40 MG VIAL IVP SCH ×2 (05:26→16:55)
[2021-01-25] MEDS: Norepinephrine 4 MG/254 ML IV.SOLN IVC SCH (05:27)
[2021-01-25 05:44] LABS: ABG Base Excess 1 mEq/L (-2 to 3); ABG HCO3 29 mEq/L (21-27); ABG Oxygen Saturation 88 % (95-98); ABG PCO2 62 mmHg (35-45); ABG PH 7.28 pH Units (7.32-7.45); ABG PO2 63 mmHg (85-104); ABG TCO2 31 mEq/L (20-26); Blood Gas Modality ASSIST CONTROL; Blood Gas VT 480 cc
[2021-01-25] MEDS: Aspirin 81 MG TAB.CHEW GTUBE SCH (08:45)
[2021-01-25] MEDS: Docusate Oral Soln 100 MG/10 ML UDC GTUBE SCH ×2 (08:45→20:03)
[2021-01-25] MEDS: Piperacillin/Tazobactam 3.375 GM in 0.9 % Sodium Chloride Mini Bag 100 ML IVPB SCH ×3 (08:45→23:45)
[2021-01-25] MEDS: Chlorhexidine Rinse 15 ML MOUTHWASH MM SCH ×2 (08:45→20:03)
[2021-01-25] MEDS: SODIUM ZIRCONIUM CYCLOSILICATE 5 GM POWD.PACK PO SCH (08:46)
[2021-01-25] MEDS ORDERED: Furosemide 40 MG/4 ML VIAL IVP ONE ×2 (09:47→13:29)
[2021-01-25 10:21] LABS: Albumin 3.8 g/dL (3.5-5.7); Albumin/Globulin Ratio 1.4 (1.1-2.2); Bilirubin,Direct 0.2 mg/dL (0.0-0.2); Bilirubin,Indirect 0.3 mg/dL (0.0-1.0); Bilirubin,Total 0.5 mg/dL (0.3-1.0); Chol/HDL Ratio 8.1 (0-4.9); Globulin 2.8 g/dL (2.4-3.5); Total Protein 6.6 g/dL (6.4-8.9)
[2021-01-25 10:25] LABS: Bilirubin,Urine Negative (Negative); Blood,Urine Negative (Negative); Clarity,Urine Clear (Clear); Color,Urine Colorless (Yellow); Glucose,Urine (UA) Normal (Normal); Ketones,Urine Negative (Negative); Leukocyte Esterase,Urine Negative (Negative); Nitrite,Urine Negative (Negative); Protein,Urine Trace mg/dL (Neg-Trace); Specific Gravity,Urine 1.019 (1.010-1.025); Urobilinogen,Urine Normal (Normal)
[2021-01-25] MEDS ORDERED: *HR* Rocuronium Bromide 50 MG/5 ML VIAL IVP ONE ×2 (13:12→13:32)
[2021-01-25] MEDS ORDERED: Furosemide 40 MG/4 ML VIAL ONE (13:29)
[2021-01-25] MEDS ORDERED: MethylPREDNISolone 40 MG/ML VIAL IVP ONE (13:38)
[2021-01-25] MEDS ORDERED: *HR* Heparin 5,000 UNIT/ML VIAL IVP PRN ×2 (13:43)
[2021-01-25] MEDS ORDERED: *HR* Heparin 5,000 UNIT/ML VIAL IVP ONE (13:43)
[2021-01-25] MEDS ORDERED: Heparin 25,000UNIT/250ML 1/2NS 25,000 UNIT/250 ML IV.SOLN IVC SCH (13:45)
[2021-01-25] MEDS: Midazolam HCl 50 MG/100 ML IV.SOLN IVC SCH (13:48)
[2021-01-25 15:16] LABS: Hematocrit 29.7 % (37.5-50.1); Hemoglobin 9.1 g/dL (12.9-16.9); INR 1.2; Mean Corpuscular HGB Conc 30.6 g/dL (31.6-35.5); Mean Corpuscular Hemoglobin 29.8 pg (28.0-33.3); Mean Corpuscular Volume 97.4 fL (83.0-100.0); Mean Platelet Volume 9.3 fL (9.4-12.4); Platelet Count 439 K/mcL (140-400); Prothrombin Time 14.3 Seconds (9.4-12.1); Red Blood Count 3.05 M/mcL (4.19-5.50); Red Cell Distribution Width 15.8 % (11.5-14.5)
[2021-01-25 15:21] LABS: Heparin anti-factor XA UFH 1.61 IU/mL (0.30-0.70)
[2021-01-25] MEDS: methylPREDNISolone 125 MG/2 ML VIAL IVP SCH (16:55)
[2021-01-25] MEDS: traZODone 50 MG TABLET PO SCH (20:03)
[2021-01-26] MEDS: Midazolam HCl 50 MG/100 ML IV.SOLN IVC SCH ×2 (00:04→18:24)
[2021-01-26] MEDS: Insulin LISPRO 300 UNITS/3 ML VIAL SUBQ SCH ×6 (00:06→19:53)
[2021-01-26] MEDS: Ipratropium/Albuterol Neb 3 ML IH SCH ×4 (03:50→21:40)
[2021-01-26 03:58] LABS: Hematocrit 26.2 % (37.5-50.1); Mean Corpuscular HGB Conc 30.5 g/dL (31.6-35.5); Mean Corpuscular Hemoglobin 29.6 pg (28.0-33.3); Mean Platelet Volume 9.6 fL (9.4-12.4); Nucleated Red Blood Cells 0.2 /100 WBC (0); Platelet Count 323 K/mcL (140-400); Red Cell Distribution Width 15.5 % (11.5-14.5); White Blood Count 10.4 K/mcL (4.3-11.1)
[2021-01-26 04:04] LABS: ABG Base Excess 3 mEq/L (-2 to 3); ABG HCO3 30 mEq/L (21-27); ABG Oxygen Saturation 98 % (95-98); ABG PCO2 61 mmHg (35-45); ABG PO2 116 mmHg (85-104); ABG TCO2 32 mEq/L (20-26); Blood Gas Modality AF; Blood Gas VT 480 cc
[2021-01-26 04:10] LABS: Calcium 9.3 mg/dL (8.6-10.3); Potassium 5.4 mEq/L (3.5-5.1)
[2021-01-26] MEDS: Artificial Tears SOLN 15 ML BOTTLE BOTH EYES SCH ×6 (04:15→23:57)
[2021-01-26 04:36] LABS: Lymphocytes # 0.2 K/mcL (0.6-4.6); Monocytes # 0.4 K/mcL (0.0-1.3); Neutrophils # 9.2 K/mcL (1.6-8.9); Platelet Estimate Normal (Normal)
[2021-01-26] MEDS: Norepinephrine 4 MG/254 ML IV.SOLN IVC SCH (05:14)
[2021-01-26] MEDS: methylPREDNISolone 125 MG/2 ML VIAL IVP SCH ×2 (05:19→17:15)
[2021-01-26] MEDS: Pantoprazole 40 MG VIAL IVP SCH ×2 (05:20→17:15)
[2021-01-26] MEDS: Dexmedetomidine HCl 400 MCG/100 ML MLS IVC SCH ×2 (06:35→20:30)
[2021-01-26] MEDS ORDERED: Furosemide 40 MG/4 ML VIAL IVP ONE (08:03)
[2021-01-26] MEDS: Docusate Oral Soln 100 MG/10 ML UDC GTUBE SCH ×2 (08:44→19:52)
[2021-01-26] MEDS: Aspirin 81 MG TAB.CHEW GTUBE SCH (08:44)
[2021-01-26] MEDS: Piperacillin/Tazobactam 3.375 GM in 0.9 % Sodium Chloride Mini Bag 100 ML IVPB SCH ×3 (08:45→23:56)
[2021-01-26] MEDS: SODIUM ZIRCONIUM CYCLOSILICATE 5 GM POWD.PACK PO SCH (08:45)
[2021-01-26] MEDS: Chlorhexidine Rinse 15 ML MOUTHWASH MM SCH ×2 (08:45→19:52)
[2021-01-26] MEDS: *HR* Heparin 5,000 UNIT/ML VIAL SQ SCH ×3 (10:04→21:54)
[2021-01-26] MEDS: FentaNYL (PF) 2,500 MCG/50 ML IV.SOLN IVC SCH ×2 (14:15→20:48)
[2021-01-26 16:20] LABS: Alanine Aminotransferase 19 Units/L (7-52); Albumin 3.6 g/dL (3.5-5.7); Albumin/Globulin Ratio 1.2 (1.1-2.2); Alkaline Phosphatase 32 Units/L (34-104); Aspartate Amino Transferase 13 Units/L (13-39); BUN/Creatinine Ratio 56 (6-26); Bilirubin,Total 0.6 mg/dL (0.3-1.0); Blood Urea Nitrogen 80 mg/dL (8-23); Calcium 9.4 mg/dL (8.6-10.3); Carbon Dioxide 31 mEq/L (23-29); Chloride 103 mEq/L (98-107); Glucose 125 mg/dL (70-105); Osmolality,Calculated 322 (280-300); Potassium 5.2 mEq/L (3.5-5.1); Sodium 143 mEq/L (136-145); Total Protein 6.6 g/dL (6.4-8.9); eGFR For African Americans > 60 (> 60); eGFR For Non-African Americans 50 (> 60)
[2021-01-26] MEDS: Micafungin 100 MG in 0.9 % Sodium Chloride Mini Bag 100 ML IVPB SCH (17:15)
[2021-01-26] MEDS: traZODone 50 MG TABLET PO SCH (19:54)
[2021-01-27] MEDS: Insulin LISPRO 300 UNITS/3 ML VIAL SUBQ SCH ×6 (00:07→19:42)
[2021-01-27] MEDS: Ipratropium/Albuterol Neb 3 ML IH SCH ×4 (03:49→21:10)
[2021-01-27] MEDS: Norepinephrine 4 MG/254 ML IV.SOLN IVC SCH (03:51)
[2021-01-27] MEDS: Artificial Tears SOLN 15 ML BOTTLE BOTH EYES SCH ×6 (03:51→23:30)
[2021-01-27 03:59] LABS: Hematocrit 28.6 % (37.5-50.1); Hemoglobin 8.8 g/dL (12.9-16.9); Mean Corpuscular HGB Conc 30.8 g/dL (31.6-35.5); Mean Corpuscular Hemoglobin 29.9 pg (28.0-33.3); Mean Corpuscular Volume 97.3 fL (83.0-100.0); Mean Platelet Volume 9.4 fL (9.4-12.4); Platelet Count 359 K/mcL (140-400); Red Blood Count 2.94 M/mcL (4.19-5.50); Red Cell Distribution Width 15.6 % (11.5-14.5); White Blood Count 10.1 K/mcL (4.3-11.1)
[2021-01-27 04:06] LABS: Neutrophils # 7.1 K/mcL (1.6-8.9)
[2021-01-27 04:11] LABS: VBG Ionized Calcium 1.26 mmol/L (1.15-1.35)
[2021-01-27 04:17] LABS: BUN/Creatinine Ratio 60 (6-26); Blood Urea Nitrogen 74 mg/dL (8-23); Calcium 9.7 mg/dL (8.6-10.3); Carbon Dioxide 34 mEq/L (23-29); Chloride 108 mEq/L (98-107); Glucose 93 mg/dL (70-105); Magnesium 2.7 mg/dL (1.6-2.6); Osmolality,Calculated 324 (280-300); Phosphorous 4.4 mg/dL (2.7-4.5); Potassium 5.5 mEq/L (3.5-5.1); Sodium 146 mEq/L (136-145); eGFR For African Americans > 60 (> 60); eGFR For Non-African Americans 59 (> 60)
[2021-01-27 04:21] LABS: ABG Base Excess 7 mEq/L (-2 to 3); ABG HCO3 34 mEq/L (21-27); ABG Oxygen Saturation 98 % (95-98); ABG PCO2 64 mmHg (35-45); ABG PH 7.33 pH Units (7.32-7.45); ABG PO2 118 mmHg (85-104); ABG TCO2 36 mEq/L (20-26); Blood Gas VT 480 cc
[2021-01-27 04:28] LABS: Anisocytosis 1+ (Not Present); Lymphocytes # 1.4 K/mcL (0.6-4.6); Monocytes # 0.4 K/mcL (0.0-1.3); Platelet Estimate Normal (Normal); Toxic Granulation Present (Not Present)
[2021-01-27] MEDS: Pantoprazole 40 MG VIAL IVP SCH (05:17)
[2021-01-27] MEDS: *HR* Heparin 5,000 UNIT/ML VIAL SQ SCH ×3 (05:17→21:50)
[2021-01-27] MEDS: Piperacillin/Tazobactam 3.375 GM in 0.9 % Sodium Chloride Mini Bag 100 ML IVPB SCH ×3 (09:33→23:30)
[2021-01-27] MEDS: Micafungin 100 MG in 0.9 % Sodium Chloride Mini Bag 100 ML IVPB SCH (09:34)
[2021-01-27] MEDS: Docusate Oral Soln 100 MG/10 ML UDC GTUBE SCH ×2 (09:35→19:27)
[2021-01-27] MEDS: Chlorhexidine Rinse 15 ML MOUTHWASH MM SCH ×2 (09:35→19:27)
[2021-01-27] MEDS: Aspirin 81 MG TAB.CHEW GTUBE SCH (09:35)
[2021-01-27] MEDS: FentaNYL (PF) 2,500 MCG/50 ML IV.SOLN IVC SCH ×2 (09:36→19:24)
[2021-01-27] MEDS: SODIUM ZIRCONIUM CYCLOSILICATE 5 GM POWD.PACK PO SCH (09:39)
[2021-01-27] MEDS: Dexmedetomidine HCl 400 MCG/100 ML MLS IVC SCH (13:10)
[2021-01-27] MEDS: traZODone 50 MG TABLET PO SCH (19:28)
[2021-01-27] MEDS: QUEtiapine Fumarate 25 MG TABLET PO SCH (19:28)
[2021-01-27 20:55] LABS: ABG Base Excess 8 mEq/L (-2 to 3); ABG HCO3 36 mEq/L (21-27); ABG Oxygen Saturation 100 % (95-98); ABG PCO2 67 mmHg (35-45); ABG PH 7.33 pH Units (7.32-7.45); ABG PO2 337 mmHg (85-104); ABG TCO2 38 mEq/L (20-26); Blood Gas Modality ASSIST CONTROL; Blood Gas VT 500 cc
[2021-01-27] MEDS: Midazolam HCl 50 MG/100 ML IV.SOLN IVC SCH (23:03)
[2021-01-28] MEDS: Ipratropium/Albuterol Neb 3 ML IH SCH ×4 (03:49→21:42)
[2021-01-28] MEDS: Artificial Tears SOLN 15 ML BOTTLE BOTH EYES SCH ×6 (04:17→23:44)
[2021-01-28 04:21] LABS: ABG Base Excess 8 mEq/L (-2 to 3); ABG HCO3 34 mEq/L (21-27); ABG Oxygen Saturation 91 % (95-98); ABG PCO2 57 mmHg (35-45); ABG PH 7.38 pH Units (7.32-7.45); ABG PO2 63 mmHg (85-104); ABG TCO2 36 mEq/L (20-26); Blood Gas VT 500 cc
[2021-01-28 04:57] LABS: Hematocrit 31.4 % (37.5-50.1); Hemoglobin 9.5 g/dL (12.9-16.9); Mean Corpuscular HGB Conc 30.3 g/dL (31.6-35.5); Mean Corpuscular Hemoglobin 30.1 pg (28.0-33.3); Mean Corpuscular Volume 99.4 fL (83.0-100.0); Mean Platelet Volume 9.4 fL (9.4-12.4); Platelet Count 392 K/mcL (140-400); Red Blood Count 3.16 M/mcL (4.19-5.50); Red Cell Distribution Width 15.8 % (11.5-14.5); White Blood Count 11.2 K/mcL (4.3-11.1)
[2021-01-28] MEDS: Insulin LISPRO 300 UNITS/3 ML VIAL SUBQ SCH ×7 (04:58→23:44)
[2021-01-28] MEDS: *HR* Heparin 5,000 UNIT/ML VIAL SQ SCH ×3 (05:09→22:04)
[2021-01-28 05:16] LABS: BUN/Creatinine Ratio 68 (6-26); Blood Urea Nitrogen 67 mg/dL (8-23); Calcium 9.7 mg/dL (8.6-10.3); Carbon Dioxide 33 mEq/L (23-29); Chloride 112 mEq/L (98-107); Glucose 133 mg/dL (70-105); Magnesium 2.5 mg/dL (1.6-2.6); Osmolality,Calculated 333 (280-300); Phosphorous 2.6 mg/dL (2.7-4.5); Potassium 4.2 mEq/L (3.5-5.1); Sodium 151 mEq/L (136-145); eGFR For African Americans > 60 (> 60); eGFR For Non-African Americans > 60 (> 60)
[2021-01-28] MEDS: Chlorhexidine Rinse 15 ML MOUTHWASH MM SCH ×2 (07:35→20:14)
[2021-01-28] MEDS: Pantoprazole 40 MG VIAL IVP SCH (07:36)
[2021-01-28] MEDS: Cholecalciferol (D-3) 1,000 UNIT (25MCG) TABLET PO SCH (07:36)
[2021-01-28] MEDS: Docusate Oral Soln 100 MG/10 ML UDC GTUBE SCH ×2 (07:37→20:14)
[2021-01-28] MEDS: Aspirin 81 MG TAB.CHEW GTUBE SCH (07:37)
[2021-01-28] MEDS: SODIUM ZIRCONIUM CYCLOSILICATE 5 GM POWD.PACK PO SCH (07:37)
[2021-01-28] MEDS: Micafungin 100 MG in 0.9 % Sodium Chloride Mini Bag 100 ML IVPB SCH (07:37)
[2021-01-28] MEDS: Dexmedetomidine HCl 400 MCG/100 ML MLS IVC SCH (07:38)
[2021-01-28] MEDS: Piperacillin/Tazobactam 3.375 GM in 0.9 % Sodium Chloride Mini Bag 100 ML IVPB SCH ×3 (07:40→23:50)
[2021-01-28] MEDS: Norepinephrine 4 MG/254 ML IV.SOLN IVC SCH (07:42)
[2021-01-28] MEDS: FentaNYL (PF) 2,500 MCG/50 ML IV.SOLN IVC SCH ×2 (07:43→20:24)
[2021-01-28] MEDS ORDERED: Furosemide 40 MG/4 ML VIAL IVP ONE (11:27)
[2021-01-28] MEDS ORDERED: Amiodarone Premix 360 MG/200 ML BAG IVC ONE ×2 (15:35→17:24)
[2021-01-28] MEDS ORDERED: Amiodarone Premix 150 MG/100 ML BAG IVPB ONE ×2 (15:35→17:24)
[2021-01-28] MEDS ORDERED: Perflutren Lipid Microsphere 1.3 ML in 0.9 % Sodium Chloride 8.7 ML IVP PRN (16:06)
[2021-01-28] MEDS: Artificial Tears SOLN 15 ML BOTTLE BOTH EYES PRN (16:43)
[2021-01-28 18:03] LABS: BUN/Creatinine Ratio 59 (6-26); Blood Urea Nitrogen 58 mg/dL (8-23); Calcium 9.6 mg/dL (8.6-10.3); Carbon Dioxide 36 mEq/L (23-29); Chloride 108 mEq/L (98-107); Glucose 138 mg/dL (70-105); Magnesium 2.2 mg/dL (1.6-2.6); Osmolality,Calculated 328 (280-300); Potassium 3.9 mEq/L (3.5-5.1); Sodium 150 mEq/L (136-145); eGFR For African Americans > 60 (> 60); eGFR For Non-African Americans > 60 (> 60)
[2021-01-28] MEDS: traZODone 50 MG TABLET PO SCH (20:15)
[2021-01-28] MEDS: QUEtiapine Fumarate 25 MG TABLET PO SCH (20:15)
[2021-01-28] MEDS ORDERED: Amiodarone Premix 360 MG/200 ML BAG IVC SCH ×2 (21:37→23:25)
[2021-01-29] MEDS: Dexmedetomidine HCl 400 MCG/100 ML MLS IVC SCH ×2 (01:16→20:41)
[2021-01-29] MEDS: Norepinephrine 4 MG/254 ML IV.SOLN IVC SCH (03:41)
[2021-01-29] MEDS: Ipratropium/Albuterol Neb 3 ML IH SCH ×4 (03:45→21:07)
[2021-01-29] MEDS: Insulin LISPRO 300 UNITS/3 ML VIAL SUBQ SCH ×6 (03:58→23:50)
[2021-01-29] MEDS: Artificial Tears SOLN 15 ML BOTTLE BOTH EYES SCH ×6 (03:58→23:50)
[2021-01-29 04:00] LABS: ABG Base Excess 9 mEq/L (-2 to 3); ABG HCO3 35 mEq/L (21-27); ABG Oxygen Saturation 90 % (95-98); ABG PCO2 54 mmHg (35-45); ABG PH 7.42 pH Units (7.32-7.45); ABG PO2 59 mmHg (85-104); ABG TCO2 37 mEq/L (20-26); Blood Gas VT 500 cc
[2021-01-29 04:12] LABS: Hematocrit 33.8 % (37.5-50.1); Mean Corpuscular HGB Conc 29.6 g/dL (31.6-35.5); Mean Corpuscular Hemoglobin 29.9 pg (28.0-33.3); Mean Corpuscular Volume 100.9 fL (83.0-100.0); Mean Platelet Volume 9.5 fL (9.4-12.4); Nucleated Red Blood Cells 0.2 /100 WBC (0); Platelet Count 382 K/mcL (140-400); Red Blood Count 3.35 M/mcL (4.19-5.50); Red Cell Distribution Width 15.7 % (11.5-14.5); White Blood Count 10.9 K/mcL (4.3-11.1)
[2021-01-29] MEDS: Acetaminophen 325 MG TABLET PO PRN (04:17)
[2021-01-29 04:34] LABS: Eosinophils # 0.7 K/mcL (0.0-0.6); Lymphocytes # 0.7 K/mcL (0.6-4.6); Monocytes # 1.1 K/mcL (0.0-1.3); Neutrophils # 8.5 K/mcL (1.6-8.9); Platelet Estimate Normal (Normal); Polychromasia 1+ (Not Present)
[2021-01-29 04:38] LABS: BUN/Creatinine Ratio 58 (6-26); Blood Urea Nitrogen 55 mg/dL (8-23); Calcium 9.3 mg/dL (8.6-10.3); Carbon Dioxide 35 mEq/L (23-29); Chloride 110 mEq/L (98-107); Glucose 119 mg/dL (70-105); Magnesium 2.3 mg/dL (1.6-2.6); Osmolality,Calculated 328 (280-300); Potassium 3.7 mEq/L (3.5-5.1); Sodium 151 mEq/L (136-145); eGFR For African Americans > 60 (> 60); eGFR For Non-African Americans > 60 (> 60)
[2021-01-29] MEDS: *HR* Heparin 5,000 UNIT/ML VIAL SQ SCH ×3 (05:53→21:47)
[2021-01-29] MEDS: Piperacillin/Tazobactam 3.375 GM in 0.9 % Sodium Chloride Mini Bag 100 ML IVPB SCH ×3 (08:07→23:50)
[2021-01-29] MEDS: Micafungin 100 MG in 0.9 % Sodium Chloride Mini Bag 100 ML IVPB SCH (08:07)
[2021-01-29] MEDS: Cholecalciferol (D-3) 1,000 UNIT (25MCG) TABLET PO SCH (08:08)
[2021-01-29] MEDS: Aspirin 81 MG TAB.CHEW GTUBE SCH (08:08)
[2021-01-29] MEDS: Pantoprazole 40 MG VIAL IVP SCH (08:08)
[2021-01-29] MEDS: Chlorhexidine Rinse 15 ML MOUTHWASH MM SCH ×2 (08:08→19:57)
[2021-01-29] MEDS: Docusate Oral Soln 100 MG/10 ML UDC GTUBE SCH ×2 (08:08→19:57)
[2021-01-29] MEDS: FentaNYL (PF) 2,500 MCG/50 ML IV.SOLN IVC SCH ×2 (08:44→22:56)
[2021-01-29] MEDS: D5% in Water 1,000 ML IVC SCH ×2 (12:59→23:06)
[2021-01-29] MEDS: Midazolam HCl 50 MG/100 ML IV.SOLN IVC SCH (13:00)
[2021-01-29 14:14] LABS: Folate 11.6 ng/mL (3.0-16.0)
[2021-01-29] MEDS: Fluconazole 400 MG/200 ML 400 MG/200 ML BAG IVPB SCH ×2 (14:28→16:28)
[2021-01-29 18:16] LABS: BUN/Creatinine Ratio 51 (6-26); Blood Urea Nitrogen 50 mg/dL (8-23); Calcium 8.8 mg/dL (8.6-10.3); Carbon Dioxide 36 mEq/L (23-29); Chloride 108 mEq/L (98-107); Glucose 133 mg/dL (70-105); Osmolality,Calculated 319 (280-300); Potassium 3.2 mEq/L (3.5-5.1); Sodium 147 mEq/L (136-145); eGFR For African Americans > 60 (> 60); eGFR For Non-African Americans > 60 (> 60)
[2021-01-29] MEDS: traZODone 50 MG TABLET PO SCH (19:57)
[2021-01-29 23:29] LABS: BUN/Creatinine Ratio 52 (6-26); Blood Urea Nitrogen 48 mg/dL (8-23); Calcium 9.1 mg/dL (8.6-10.3); Carbon Dioxide 33 mEq/L (23-29); Chloride 107 mEq/L (98-107); Glucose 121 mg/dL (70-105); Osmolality,Calculated 316 (280-300); Potassium 3.4 mEq/L (3.5-5.1); Sodium 146 mEq/L (136-145); eGFR For African Americans > 60 (> 60); eGFR For Non-African Americans > 60 (> 60)
[2021-01-30] MEDS: Artificial Tears SOLN 15 ML BOTTLE BOTH EYES SCH ×6 (03:47→23:20)
[2021-01-30] MEDS: Insulin LISPRO 300 UNITS/3 ML VIAL SUBQ SCH ×6 (03:48→23:20)
[2021-01-30] MEDS: Ipratropium/Albuterol Neb 3 ML IH SCH ×4 (03:51→21:35)
[2021-01-30 04:24] LABS: ABG Base Excess 8 mEq/L (-2 to 3); ABG HCO3 35 mEq/L (21-27); ABG Oxygen Saturation 90 % (95-98); ABG PCO2 60 mmHg (35-45); ABG PH 7.37 pH Units (7.32-7.45); ABG PO2 63 mmHg (85-104); ABG TCO2 37 mEq/L (20-26); Blood Gas VT 500 cc
[2021-01-30 04:29] LABS: Hematocrit 30.6 % (37.5-50.1); Mean Corpuscular HGB Conc 29.4 g/dL (31.6-35.5); Mean Corpuscular Hemoglobin 29.9 pg (28.0-33.3); Mean Corpuscular Volume 101.7 fL (83.0-100.0); Mean Platelet Volume 9.7 fL (9.4-12.4); Nucleated Red Blood Cells 0.2 /100 WBC (0); Platelet Count 308 K/mcL (140-400); Red Blood Count 3.01 M/mcL (4.19-5.50); Red Cell Distribution Width 15.6 % (11.5-14.5); White Blood Count 11.2 K/mcL (4.3-11.1)
[2021-01-30 04:43] LABS: BUN/Creatinine Ratio 47 (6-26); Blood Urea Nitrogen 45 mg/dL (8-23); Carbon Dioxide 34 mEq/L (23-29); Chloride 108 mEq/L (98-107); Glucose 118 mg/dL (70-105); Magnesium 1.8 mg/dL (1.6-2.6); Osmolality,Calculated 317 (280-300); Potassium 3.4 mEq/L (3.5-5.1); Sodium 147 mEq/L (136-145); eGFR For African Americans > 60 (> 60); eGFR For Non-African Americans > 60 (> 60)
[2021-01-30 04:55] LABS: Lymphocytes # 2.5 K/mcL (0.6-4.6); Monocytes # 0.7 K/mcL (0.0-1.3); Neutrophils # 7.8 K/mcL (1.6-8.9); Platelet Estimate Normal (Normal); Reactive Lymphocytes Present (Not Present); Smudge Cells Present (Not Present)
[2021-01-30] MEDS: *HR* Heparin 5,000 UNIT/ML VIAL SQ SCH ×3 (05:23→22:21)
[2021-01-30] MEDS: Norepinephrine 4 MG/254 ML IV.SOLN IVC SCH (05:23)
[2021-01-30] MEDS: FentaNYL (PF) 2,500 MCG/50 ML IV.SOLN IVC SCH ×2 (06:05→21:04)
[2021-01-30] MEDS: Fluconazole 400 MG/200 ML 400 MG/200 ML BAG IVPB SCH (08:06)
[2021-01-30] MEDS: Piperacillin/Tazobactam 3.375 GM in 0.9 % Sodium Chloride Mini Bag 100 ML IVPB SCH ×3 (08:06→23:20)
[2021-01-30] MEDS: Docusate Oral Soln 100 MG/10 ML UDC GTUBE SCH ×2 (08:07→19:51)
[2021-01-30] MEDS: Chlorhexidine Rinse 15 ML MOUTHWASH MM SCH ×2 (08:07→19:51)
[2021-01-30] MEDS: Cholecalciferol (D-3) 1,000 UNIT (25MCG) TABLET PO SCH (08:07)
[2021-01-30] MEDS: Pantoprazole 40 MG VIAL IVP SCH (08:07)
[2021-01-30] MEDS: Aspirin 81 MG TAB.CHEW GTUBE SCH (08:07)
[2021-01-30] MEDS ORDERED: Milk and Molasses Enema 200 ML RC ONE (11:10)
[2021-01-30] MEDS ORDERED: *HR* Alteplase (Cathflo) 2 MG VIAL IVP ONE (11:27)
[2021-01-30] MEDS: Midazolam HCl 50 MG/100 ML IV.SOLN IVC SCH (13:09)
[2021-01-30] MEDS: Dexmedetomidine HCl 400 MCG/100 ML MLS IVC SCH (15:45)
[2021-01-30] MEDS: traZODone 50 MG TABLET PO SCH (19:52)
[2021-01-31] MEDS: Ipratropium/Albuterol Neb 3 ML IH SCH ×4 (03:49→21:44)
[2021-01-31] MEDS: Norepinephrine 4 MG/254 ML IV.SOLN IVC SCH (04:10)
[2021-01-31] MEDS: Insulin LISPRO 300 UNITS/3 ML VIAL SUBQ SCH ×5 (04:10→19:56)
[2021-01-31] MEDS: Artificial Tears SOLN 15 ML BOTTLE BOTH EYES SCH ×6 (04:11→23:46)
[2021-01-31 04:17] LABS: Hematocrit 32.2 % (37.5-50.1); Hemoglobin 9.5 g/dL (12.9-16.9); Mean Corpuscular HGB Conc 29.5 g/dL (31.6-35.5); Mean Corpuscular Hemoglobin 30.2 pg (28.0-33.3); Mean Corpuscular Volume 102.2 fL (83.0-100.0); Mean Platelet Volume 9.4 fL (9.4-12.4); Nucleated Red Blood Cells 0.2 /100 WBC (0); Platelet Count 287 K/mcL (140-400); Red Blood Count 3.15 M/mcL (4.19-5.50); Red Cell Distribution Width 15.7 % (11.5-14.5); White Blood Count 12.8 K/mcL (4.3-11.1)
[2021-01-31 04:32] LABS: BUN/Creatinine Ratio 44 (6-26); Blood Urea Nitrogen 40 mg/dL (8-23); Calcium 9.1 mg/dL (8.6-10.3); Carbon Dioxide 31 mEq/L (23-29); Chloride 107 mEq/L (98-107); Glucose 115 mg/dL (70-105); Magnesium 2.2 mg/dL (1.6-2.6); Osmolality,Calculated 313 (280-300); Phosphorous 2.3 mg/dL (2.7-4.5); Potassium 3.4 mEq/L (3.5-5.1); Sodium 146 mEq/L (136-145); eGFR For African Americans > 60 (> 60); eGFR For Non-African Americans > 60 (> 60)
[2021-01-31 04:41] LABS: Anisocytosis 1+ (Not Present); Lymphocytes # 2.1 K/mcL (0.6-4.6); Neutrophils # 7.9 K/mcL (1.6-8.9); Platelet Estimate Normal (Normal); Polychromasia 1+ (Not Present)
[2021-01-31 05:05] LABS: ABG Base Excess 7 mEq/L (-2 to 3); ABG HCO3 32 mEq/L (21-27); ABG Oxygen Saturation 93 % (95-98); ABG PCO2 51 mmHg (35-45); ABG PH 7.41 pH Units (7.32-7.45); ABG PO2 68 mmHg (85-104); ABG TCO2 34 mEq/L (20-26); Blood Gas Modality AF; Blood Gas VT 500 cc
[2021-01-31] MEDS: *HR* Heparin 5,000 UNIT/ML VIAL SQ SCH ×3 (05:16→20:14)
[2021-01-31] MEDS: Piperacillin/Tazobactam 3.375 GM in 0.9 % Sodium Chloride Mini Bag 100 ML IVPB SCH ×2 (07:59→17:14)
[2021-01-31] MEDS: Pantoprazole 40 MG VIAL IVP SCH (08:00)
[2021-01-31] MEDS: Chlorhexidine Rinse 15 ML MOUTHWASH MM SCH ×2 (08:00→20:14)
[2021-01-31] MEDS ORDERED: Furosemide 40 MG/4 ML VIAL IVP ONE (08:09)
[2021-01-31] MEDS: Cholecalciferol (D-3) 1,000 UNIT (25MCG) TABLET PO SCH (08:13)
[2021-01-31] MEDS: Docusate Oral Soln 100 MG/10 ML UDC GTUBE SCH ×2 (08:13→20:14)
[2021-01-31] MEDS: Aspirin 81 MG TAB.CHEW GTUBE SCH (08:14)
[2021-01-31] MEDS ORDERED: *HR* Metoprolol 5 MG/5 ML VIAL IVP ONE (08:54)
[2021-01-31] MEDS: Dexmedetomidine HCl 400 MCG/100 ML MLS IVC SCH ×2 (09:05→17:15)
[2021-01-31] MEDS: Fluconazole 400 MG/200 ML 400 MG/200 ML BAG IVPB SCH (09:21)
[2021-01-31] MEDS: FentaNYL (PF) 2,500 MCG/50 ML IV.SOLN IVC SCH (12:08)
[2021-01-31] MEDS: Midazolam HCl 50 MG/100 ML IV.SOLN IVC SCH (13:37)
[2021-01-31 14:51] LABS: VBG Ionized Calcium 1.19 mmol/L (1.15-1.35)
[2021-01-31 15:38] LABS: BUN/Creatinine Ratio 32 (6-26); Blood Urea Nitrogen 41 mg/dL (8-23); Calcium 8.9 mg/dL (8.6-10.3); Carbon Dioxide 31 mEq/L (23-29); Chloride 109 mEq/L (98-107); Glucose 112 mg/dL (70-105); Magnesium 2.2 mg/dL (1.6-2.6); Osmolality,Calculated 315 (280-300); Phosphorous 4.2 mg/dL (2.7-4.5); Sodium 147 mEq/L (136-145); eGFR For African Americans > 60 (> 60); eGFR For Non-African Americans 57 (> 60)
[2021-01-31] MEDS: traZODone 50 MG TABLET PO SCH (20:14)
[2021-02-01] MEDS: Insulin LISPRO 300 UNITS/3 ML VIAL SUBQ SCH ×6 (00:51→20:08)
[2021-02-01] MEDS: Piperacillin/Tazobactam 3.375 GM in 0.9 % Sodium Chloride Mini Bag 100 ML IVPB SCH ×3 (00:51→17:34)
[2021-02-01] MEDS: Dexmedetomidine HCl 400 MCG/100 ML MLS IVC SCH ×5 (01:05→22:53)
[2021-02-01] MEDS: Artificial Tears SOLN 15 ML BOTTLE BOTH EYES SCH ×5 (03:29→20:08)
[2021-02-01] MEDS: Ipratropium/Albuterol Neb 3 ML IH SCH ×4 (03:40→21:33)
[2021-02-01] MEDS: Norepinephrine 4 MG/254 ML IV.SOLN IVC SCH (04:12)
[2021-02-01 05:00] LABS: ABG Base Excess 5 mEq/L (-2 to 3); ABG HCO3 31 mEq/L (21-27); ABG Oxygen Saturation 93 % (95-98); ABG PCO2 59 mmHg (35-45); ABG PH 7.34 pH Units (7.32-7.45); ABG PO2 74 mmHg (85-104); ABG TCO2 33 mEq/L (20-26); Blood Gas Modality AF; Blood Gas VT 500 cc
[2021-02-01] MEDS: *HR* Heparin 5,000 UNIT/ML VIAL SQ SCH ×3 (05:00→21:30)
[2021-02-01 05:19] LABS: Basophils # 0.1 K/mcL (0.0-0.2); Eosinophils # 0.3 K/mcL (0.0-0.6); Eosinophils % 2.4 %; Hematocrit 28.6 % (37.5-50.1); Hemoglobin 8.3 g/dL (12.9-16.9); Immature Granulocytes % 5.2 % (0-4); Lymphocytes # 1.3 K/mcL (0.6-4.6); Mean Corpuscular Hemoglobin 29.5 pg (28.0-33.3); Mean Corpuscular Volume 101.8 fL (83.0-100.0); Mean Platelet Volume 9.5 fL (9.4-12.4); Monocytes # 1.1 K/mcL (0.0-1.3); Monocytes % 10.8 %; Neutrophils # 7.2 K/mcL (1.6-8.9); Platelet Count 234 K/mcL (140-400); Red Blood Count 2.81 M/mcL (4.19-5.50); Red Cell Distribution Width 15.9 % (11.5-14.5); Segmented Neutrophils % 68.6 %; White Blood Count 10.5 K/mcL (4.3-11.1)
[2021-02-01 05:38] LABS: BUN/Creatinine Ratio 33 (6-26); Blood Urea Nitrogen 36 mg/dL (8-23); Calcium 8.8 mg/dL (8.6-10.3); Carbon Dioxide 31 mEq/L (23-29); Chloride 108 mEq/L (98-107); Glucose 131 mg/dL (70-105); Osmolality,Calculated 308 (280-300); Phosphorous 2.8 mg/dL (2.7-4.5); Potassium 3.5 mEq/L (3.5-5.1); Sodium 144 mEq/L (136-145); eGFR For African Americans > 60 (> 60); eGFR For Non-African Americans > 60 (> 60)
[2021-02-01 05:55] LABS: Platelet Estimate Normal (Normal); Reactive Lymphocytes Present (Not Present)
[2021-02-01] MEDS: FentaNYL (PF) 2,500 MCG/50 ML IV.SOLN IVC SCH (06:12)
[2021-02-01] MEDS ORDERED: Furosemide 40 MG/4 ML VIAL IVP ONE (08:04)
[2021-02-01] MEDS ORDERED: Potassium Chloride Elixir 20 MEQ/15 ML UDC GTUBE ONE (08:04)
[2021-02-01] MEDS: Cholecalciferol (D-3) 1,000 UNIT (25MCG) TABLET PO SCH (09:00)
[2021-02-01] MEDS: Aspirin 81 MG TAB.CHEW GTUBE SCH (09:18)
[2021-02-01] MEDS: Chlorhexidine Rinse 15 ML MOUTHWASH MM SCH ×2 (09:19→21:31)
[2021-02-01] MEDS: Pantoprazole 40 MG VIAL IVP SCH (09:19)
[2021-02-01] MEDS: Docusate Oral Soln 100 MG/10 ML UDC GTUBE SCH ×2 (09:19→21:31)
[2021-02-01] MEDS: Fluconazole 400 MG/200 ML 400 MG/200 ML BAG IVPB SCH (09:20)
[2021-02-01] MEDS: Midazolam HCl 50 MG/100 ML IV.SOLN IVC SCH (13:19)
[2021-02-01] MEDS: traZODone 50 MG TABLET PO SCH (21:30)
[2021-02-02] MEDS: Artificial Tears SOLN 15 ML BOTTLE BOTH EYES SCH ×7 (00:30→23:55)
[2021-02-02] MEDS: Piperacillin/Tazobactam 3.375 GM in 0.9 % Sodium Chloride Mini Bag 100 ML IVPB SCH ×4 (00:50→23:55)
[2021-02-02] MEDS: MethylPREDNISolone 40 MG/ML VIAL IVP SCH ×4 (00:50→23:55)
[2021-02-02] MEDS: Acetaminophen 325 MG TABLET PO PRN ×2 (01:03→08:17)
[2021-02-02] MEDS: Insulin LISPRO 300 UNITS/3 ML VIAL SUBQ SCH ×7 (01:04→23:55)
[2021-02-02] MEDS: FentaNYL (PF) 2,500 MCG/50 ML IV.SOLN IVC SCH (04:00)
[2021-02-02] MEDS: Ipratropium/Albuterol Neb 3 ML IH SCH ×4 (04:00→21:45)
[2021-02-02] MEDS: Dexmedetomidine HCl 400 MCG/100 ML MLS IVC SCH ×5 (04:25→23:09)
[2021-02-02 05:07] LABS: Basophils # 0.1 K/mcL (0.0-0.2); Basophils % 0.9 %; Eosinophils # 0.2 K/mcL (0.0-0.6); Eosinophils % 1.8 %; Hematocrit 29.4 % (37.5-50.1); Hemoglobin 8.8 g/dL (12.9-16.9); Lymphocytes # 0.7 K/mcL (0.6-4.6); Lymphocytes % 5.4 %; Mean Corpuscular HGB Conc 29.9 g/dL (31.6-35.5); Mean Corpuscular Hemoglobin 29.9 pg (28.0-33.3); Mean Platelet Volume 9.5 fL (9.4-12.4); Monocytes # 0.5 K/mcL (0.0-1.3); Neutrophils # 11.2 K/mcL (1.6-8.9); Platelet Count 235 K/mcL (140-400); Red Blood Count 2.94 M/mcL (4.19-5.50); Red Cell Distribution Width 15.9 % (11.5-14.5); Segmented Neutrophils % 84.9 %; White Blood Count 13.2 K/mcL (4.3-11.1)
[2021-02-02 05:17] LABS: ABG Base Excess 4 mEq/L (-2 to 3); ABG HCO3 30 mEq/L (21-27); ABG Oxygen Saturation 97 % (95-98); ABG PCO2 50 mmHg (35-45); ABG PH 7.39 pH Units (7.32-7.45); ABG PO2 88 mmHg (85-104); ABG TCO2 32 mEq/L (20-26); Blood Gas Modality AF; Blood Gas VT 500 cc
[2021-02-02] MEDS: *HR* Heparin 5,000 UNIT/ML VIAL SQ SCH ×3 (05:20→20:16)
[2021-02-02 05:27] LABS: BUN/Creatinine Ratio 29 (6-26); Blood Urea Nitrogen 29 mg/dL (8-23); Carbon Dioxide 28 mEq/L (23-29); Chloride 104 mEq/L (98-107); Glucose 177 mg/dL (70-105); Osmolality,Calculated 302 (280-300); Potassium 3.9 mEq/L (3.5-5.1); Sodium 141 mEq/L (136-145); eGFR For African Americans > 60 (> 60); eGFR For Non-African Americans > 60 (> 60)
[2021-02-02] MEDS: Norepinephrine 4 MG/254 ML IV.SOLN IVC SCH (07:55)
[2021-02-02] MEDS: Pantoprazole 40 MG VIAL IVP SCH (08:16)
[2021-02-02] MEDS: Chlorhexidine Rinse 15 ML MOUTHWASH MM SCH ×2 (08:16→19:48)
[2021-02-02] MEDS: Docusate Oral Soln 100 MG/10 ML UDC GTUBE SCH ×2 (08:16→19:48)
[2021-02-02] MEDS: Cholecalciferol (D-3) 1,000 UNIT (25MCG) TABLET PO SCH (08:17)
[2021-02-02] MEDS: Aspirin 81 MG TAB.CHEW GTUBE SCH (08:17)
[2021-02-02] MEDS: Fluconazole 400 MG/200 ML 400 MG/200 ML BAG IVPB SCH (08:18)
[2021-02-02 11:31] LABS: Source of Body Fluid Right Lower Lobe
[2021-02-02] MEDS ORDERED: Furosemide 40 MG/4 ML VIAL IVP ONE (12:02)
[2021-02-02] MEDS: Midazolam HCl 50 MG/100 ML IV.SOLN IVC SCH (12:24)
[2021-02-02 13:11] LABS: Appearance of Body Fluid Hazy (Clear); Volume of Body Fluid 9 mL
[2021-02-02] MEDS: traZODone 50 MG TABLET PO SCH (19:48)
[2021-02-02] MEDS: Nystatin SUSP 5 ML UD.LIQ PO SCH (19:50)
[2021-02-03] MEDS: Ipratropium/Albuterol Neb 3 ML IH SCH ×4 (04:24→21:39)
[2021-02-03] MEDS: Artificial Tears SOLN 15 ML BOTTLE BOTH EYES SCH ×5 (04:27→19:43)
[2021-02-03] MEDS: Dexmedetomidine HCl 400 MCG/100 ML MLS IVC SCH ×5 (04:28→22:25)
[2021-02-03] MEDS: Insulin LISPRO 300 UNITS/3 ML VIAL SUBQ SCH ×5 (04:28→19:45)
[2021-02-03] MEDS: Norepinephrine 4 MG/254 ML IV.SOLN IVC SCH (04:47)
[2021-02-03 05:08] LABS: ABG Base Excess 2 mEq/L (-2 to 3); ABG HCO3 28 mEq/L (21-27); ABG Oxygen Saturation 95 % (95-98); ABG PCO2 49 mmHg (35-45); ABG PH 7.37 pH Units (7.32-7.45); ABG PO2 80 mmHg (85-104); ABG TCO2 30 mEq/L (20-26); Blood Gas VT 500 cc
[2021-02-03 05:22] LABS: Basophils % 0.3 %; Hematocrit 28.3 % (37.5-50.1); Hemoglobin 8.6 g/dL (12.9-16.9); Immature Granulocytes % 1.8 % (0-4); Lymphocytes # 0.7 K/mcL (0.6-4.6); Lymphocytes % 4.7 %; Mean Corpuscular HGB Conc 30.4 g/dL (31.6-35.5); Mean Corpuscular Hemoglobin 29.6 pg (28.0-33.3); Mean Corpuscular Volume 97.3 fL (83.0-100.0); Mean Platelet Volume 9.7 fL (9.4-12.4); Monocytes # 0.3 K/mcL (0.0-1.3); Monocytes % 1.8 %; Platelet Count 228 K/mcL (140-400); Red Blood Count 2.91 M/mcL (4.19-5.50); Red Cell Distribution Width 15.6 % (11.5-14.5); Segmented Neutrophils % 91.4 %; White Blood Count 14.2 K/mcL (4.3-11.1)
[2021-02-03 05:43] LABS: Phosphorous 2.6 mg/dL (2.7-4.5)
[2021-02-03] MEDS: *HR* Heparin 5,000 UNIT/ML VIAL SQ SCH ×3 (06:45→21:47)
[2021-02-03] MEDS: Piperacillin/Tazobactam 3.375 GM in 0.9 % Sodium Chloride Mini Bag 100 ML IVPB SCH (07:58)
[2021-02-03] MEDS: Chlorhexidine Rinse 15 ML MOUTHWASH MM SCH ×2 (07:58→19:43)
[2021-02-03] MEDS: MethylPREDNISolone 40 MG/ML VIAL IVP SCH ×2 (07:59→15:46)
[2021-02-03] MEDS: Fluconazole 400 MG/200 ML 400 MG/200 ML BAG IVPB SCH (07:59)
[2021-02-03] MEDS: Nystatin SUSP 5 ML UD.LIQ PO SCH ×4 (07:59→19:43)
[2021-02-03] MEDS: Pantoprazole 40 MG VIAL IVP SCH (07:59)
[2021-02-03] MEDS: Aspirin 81 MG TAB.CHEW GTUBE SCH (08:35)
[2021-02-03] MEDS: Docusate Oral Soln 100 MG/10 ML UDC GTUBE SCH ×2 (08:35→19:43)
[2021-02-03] MEDS: Cholecalciferol (D-3) 1,000 UNIT (25MCG) TABLET PO SCH (08:35)
[2021-02-03 12:42] LABS: BUN/Creatinine Ratio 34 (6-26); Blood Urea Nitrogen 34 mg/dL (8-23); Calcium 8.8 mg/dL (8.6-10.3); Carbon Dioxide 26 mEq/L (23-29); Chloride 105 mEq/L (98-107); Glucose 181 mg/dL (70-105); Osmolality,Calculated 306 (280-300); Potassium 3.6 mEq/L (3.5-5.1); Sodium 142 mEq/L (136-145); eGFR For African Americans > 60 (> 60); eGFR For Non-African Americans > 60 (> 60)
[2021-02-03] MEDS: levoFLOXacin 750 MG/150 ML 750 MG/150 ML BAG IVPB SCH (13:00)
[2021-02-03] MEDS: Midazolam HCl 50 MG/100 ML IV.SOLN IVC SCH (13:40)
[2021-02-03] MEDS: FentaNYL (PF) 1,000 MCG/100 ML IV.SOLN IVC SCH ×2 (13:40→20:11)
[2021-02-03] MEDS: Meropenem 1,000 MG in 0.9 % Sodium Chloride Mini Bag 100 ML IVPB SCH (15:46)
[2021-02-03] MEDS: traZODone 50 MG TABLET PO SCH (19:43)
[2021-02-04] MEDS: Artificial Tears SOLN 15 ML BOTTLE BOTH EYES SCH ×7 (00:20→23:29)
[2021-02-04] MEDS: MethylPREDNISolone 40 MG/ML VIAL IVP SCH ×4 (00:21→23:29)
[2021-02-04] MEDS: Meropenem 1,000 MG in 0.9 % Sodium Chloride Mini Bag 100 ML IVPB SCH ×2 (00:22→07:57)
[2021-02-04] MEDS: Insulin LISPRO 300 UNITS/3 ML VIAL SUBQ SCH ×7 (00:22→23:55)
[2021-02-04] MEDS: FentaNYL (PF) 1,000 MCG/100 ML IV.SOLN IVC SCH (04:00)
[2021-02-04] MEDS: Ipratropium/Albuterol Neb 3 ML IH SCH ×4 (04:02→21:31)
[2021-02-04 04:38] LABS: ABG Base Excess 4 mEq/L (-2 to 3); ABG HCO3 28 mEq/L (21-27); ABG Oxygen Saturation 94 % (95-98); ABG PCO2 37 mmHg (35-45); ABG PH 7.48 pH Units (7.32-7.45); ABG PO2 67 mmHg (85-104); ABG TCO2 29 mEq/L (20-26); Blood Gas VT 500 cc
[2021-02-04] MEDS: Dexmedetomidine HCl 400 MCG/100 ML MLS IVC SCH ×5 (04:50→19:27)
[2021-02-04 04:56] LABS: Basophils % 0.1 %; Hematocrit 28.8 % (37.5-50.1); Hemoglobin 8.8 g/dL (12.9-16.9); Immature Granulocytes % 2.2 % (0-4); Lymphocytes # 0.7 K/mcL (0.6-4.6); Lymphocytes % 3.2 %; Mean Corpuscular HGB Conc 30.6 g/dL (31.6-35.5); Mean Corpuscular Hemoglobin 29.7 pg (28.0-33.3); Mean Corpuscular Volume 97.3 fL (83.0-100.0); Mean Platelet Volume 9.8 fL (9.4-12.4); Monocytes # 0.9 K/mcL (0.0-1.3); Monocytes % 4.3 %; Platelet Count 258 K/mcL (140-400); Red Blood Count 2.96 M/mcL (4.19-5.50); Red Cell Distribution Width 15.9 % (11.5-14.5); Segmented Neutrophils % 90.2 %
[2021-02-04 05:00] LABS: Neutrophils # 19.7 K/mcL (1.6-8.9); White Blood Count 21.8 K/mcL (4.3-11.1)
[2021-02-04 05:15] LABS: BUN/Creatinine Ratio 48 (6-26); Blood Urea Nitrogen 38 mg/dL (8-23); Calcium 8.2 mg/dL (8.6-10.3); Carbon Dioxide 27 mEq/L (23-29); Chloride 104 mEq/L (98-107); Glucose 179 mg/dL (70-105); Magnesium 2.3 mg/dL (1.6-2.6); Osmolality,Calculated 304 (280-300); Phosphorous 1.8 mg/dL (2.7-4.5); Potassium 3.3 mEq/L (3.5-5.1); Sodium 140 mEq/L (136-145); eGFR For African Americans > 60 (> 60); eGFR For Non-African Americans > 60 (> 60)
[2021-02-04] MEDS ORDERED: Potassium Phosphate 44 MEQ in 0.9 % Sodium Chloride 250 ML IVPB ONE (06:17)
[2021-02-04] MEDS: *HR* Heparin 5,000 UNIT/ML VIAL SQ SCH ×3 (06:23→22:10)
[2021-02-04] MEDS: Norepinephrine 4 MG/254 ML IV.SOLN IVC SCH (07:44)
[2021-02-04] MEDS: Pantoprazole 40 MG VIAL IVP SCH (07:56)
[2021-02-04] MEDS: Aspirin 81 MG TAB.CHEW GTUBE SCH (07:57)
[2021-02-04] MEDS: Chlorhexidine Rinse 15 ML MOUTHWASH MM SCH ×2 (07:57→19:36)
[2021-02-04] MEDS: Docusate Oral Soln 100 MG/10 ML UDC GTUBE SCH (07:57)
[2021-02-04] MEDS: Nystatin SUSP 5 ML UD.LIQ PO SCH ×4 (07:57→19:36)
[2021-02-04] MEDS: levoFLOXacin 750 MG/150 ML 750 MG/150 ML BAG IVPB SCH (07:58)
[2021-02-04] MEDS: Cholecalciferol (D-3) 1,000 UNIT (25MCG) TABLET PO SCH (07:58)
[2021-02-04] MEDS: Fluconazole 400 MG/200 ML 400 MG/200 ML BAG IVPB SCH (07:58)
[2021-02-04] MEDS ORDERED: *HR* Labetalol 20 MG/4 ML SYRINGE IVP ONE (08:05)
[2021-02-04] MEDS ORDERED: Vancomycin 1,750 MG in 0.9 % Sodium Chloride 250 ML IVPB SCH (11:00)
[2021-02-04] MEDS: Vancomycin Oral Soln 125 MG/2.5 ML UDC PO SCH ×3 (11:29→22:10)
[2021-02-04] MEDS: Artificial Tears SOLN 15 ML BOTTLE BOTH EYES PRN (11:29)
[2021-02-04] MEDS: FentaNYL (PF) 2,500 MCG/50 ML IV.SOLN IVC SCH (14:06)
[2021-02-04] MEDS: Meropenem 1,000 MG in Water for inj. (sterile) 20 ML IVP SCH ×2 (16:00→23:29)
[2021-02-04] MEDS: Midazolam HCl 50 MG/100 ML IV.SOLN IVC SCH (18:08)
[2021-02-04] MEDS: traZODone 50 MG TABLET PO SCH (19:36)
[2021-02-05] MEDS: Dexmedetomidine HCl 400 MCG/100 ML MLS IVC SCH ×3 (00:29→13:31)
[2021-02-05] MEDS: FentaNYL (PF) 2,500 MCG/50 ML IV.SOLN IVC SCH (03:20)
[2021-02-05] MEDS: Ipratropium/Albuterol Neb 3 ML IH SCH ×4 (03:53→21:45)
[2021-02-05] MEDS: Artificial Tears SOLN 15 ML BOTTLE BOTH EYES SCH ×6 (04:16→23:51)
[2021-02-05] MEDS: Insulin LISPRO 300 UNITS/3 ML VIAL SUBQ SCH ×6 (04:16→23:51)
[2021-02-05] MEDS: Vancomycin Oral Soln 125 MG/2.5 ML UDC PO SCH ×4 (04:21→22:09)
[2021-02-05 04:24] LABS: Influenza A PCR Body Fluid NOT DETECTED; Influenza B PCR Body Fluid NOT DETECTED; RVP Body Fluid Source BAL
[2021-02-05 04:31] LABS: ABG Base Excess 3 mEq/L (-2 to 3); ABG HCO3 28 mEq/L (21-27); ABG Oxygen Saturation 92 % (95-98); ABG PCO2 46 mmHg (35-45); ABG PH 7.39 pH Units (7.32-7.45); ABG PO2 64 mmHg (85-104); ABG TCO2 30 mEq/L (20-26); Blood Gas VT 500 cc
[2021-02-05 05:10] LABS: Hematocrit 29.8 % (37.5-50.1); Hemoglobin 9.1 g/dL (12.9-16.9); Mean Corpuscular HGB Conc 30.5 g/dL (31.6-35.5); Mean Corpuscular Hemoglobin 29.8 pg (28.0-33.3); Mean Corpuscular Volume 97.7 fL (83.0-100.0); Mean Platelet Volume 10.1 fL (9.4-12.4); Platelet Count 272 K/mcL (140-400); Red Blood Count 3.05 M/mcL (4.19-5.50); Red Cell Distribution Width 16.5 % (11.5-14.5); White Blood Count 23.1 K/mcL (4.3-11.1)
[2021-02-05 05:28] LABS: BUN/Creatinine Ratio 52 (6-26); Blood Urea Nitrogen 42 mg/dL (8-23); Calcium 8.5 mg/dL (8.6-10.3); Carbon Dioxide 29 mEq/L (23-29); Chloride 104 mEq/L (98-107); Glucose 166 mg/dL (70-105); Osmolality,Calculated 304 (280-300); Potassium 4.1 mEq/L (3.5-5.1); Sodium 140 mEq/L (136-145); eGFR For African Americans > 60 (> 60); eGFR For Non-African Americans > 60 (> 60)
[2021-02-05 05:29] LABS: Magnesium 2.3 mg/dL (1.6-2.6); Phosphorous 3.6 mg/dL (2.7-4.5)
[2021-02-05] MEDS: Norepinephrine 4 MG/254 ML IV.SOLN IVC SCH (05:51)
[2021-02-05] MEDS: *HR* Heparin 5,000 UNIT/ML VIAL SQ SCH ×3 (05:53→22:09)
[2021-02-05 07:32] LABS: RSV PCR Body Fluid NOT DETECTED
[2021-02-05] MEDS: Meropenem 1,000 MG in Water for inj. (sterile) 20 ML IVP SCH ×3 (07:42→23:50)
[2021-02-05] MEDS: MethylPREDNISolone 40 MG/ML VIAL IVP SCH ×3 (07:43→23:50)
[2021-02-05] MEDS: Aspirin 81 MG TAB.CHEW GTUBE SCH (07:44)
[2021-02-05] MEDS: Chlorhexidine Rinse 15 ML MOUTHWASH MM SCH ×2 (07:44→20:06)
[2021-02-05] MEDS: Fluconazole 400 MG/200 ML 400 MG/200 ML BAG IVPB SCH (07:44)
[2021-02-05] MEDS: Pantoprazole 40 MG VIAL IVP SCH (07:45)
[2021-02-05] MEDS: Cholecalciferol (D-3) 1,000 UNIT (25MCG) TABLET PO SCH (07:45)
[2021-02-05] MEDS: Nystatin SUSP 5 ML UD.LIQ PO SCH ×4 (07:45→20:06)
[2021-02-05] MEDS ORDERED: GuaiFENesin Liq 200 MG/10 ML UDC GTUBE PRN (10:56)
[2021-02-05] MEDS: Midazolam HCl 50 MG/100 ML IV.SOLN IVC SCH (18:32)
[2021-02-05] MEDS: traZODone 50 MG TABLET PO SCH (20:06)
[2021-02-06] MEDS: FentaNYL (PF) 2,500 MCG/50 ML IV.SOLN IVC SCH (00:30)
[2021-02-06] MEDS: Dexmedetomidine HCl 400 MCG/100 ML MLS IVC SCH ×2 (02:06→17:00)
[2021-02-06 03:22] LABS: Hemoglobin 9.5 g/dL (12.9-16.9); Mean Corpuscular HGB Conc 30.6 g/dL (31.6-35.5); Mean Corpuscular Hemoglobin 29.9 pg (28.0-33.3); Mean Corpuscular Volume 97.5 fL (83.0-100.0); Mean Platelet Volume 9.8 fL (9.4-12.4); Platelet Count 270 K/mcL (140-400); Red Blood Count 3.18 M/mcL (4.19-5.50); Red Cell Distribution Width 16.5 % (11.5-14.5)
[2021-02-06] MEDS: Ipratropium/Albuterol Neb 3 ML IH SCH ×4 (03:30→21:28)
[2021-02-06 03:43] LABS: BUN/Creatinine Ratio 62 (6-26); Blood Urea Nitrogen 44 mg/dL (8-23); Calcium 8.3 mg/dL (8.6-10.3); Carbon Dioxide 29 mEq/L (23-29); Chloride 105 mEq/L (98-107); Glucose 181 mg/dL (70-105); Magnesium 2.3 mg/dL (1.6-2.6); Osmolality,Calculated 308 (280-300); Phosphorous 2.9 mg/dL (2.7-4.5); Potassium 4.1 mEq/L (3.5-5.1); Sodium 141 mEq/L (136-145); eGFR For African Americans > 60 (> 60); eGFR For Non-African Americans > 60 (> 60)
[2021-02-06] MEDS: Artificial Tears SOLN 15 ML BOTTLE BOTH EYES SCH ×6 (03:55→23:23)
[2021-02-06] MEDS: Insulin LISPRO 300 UNITS/3 ML VIAL SUBQ SCH ×6 (03:55→23:23)
[2021-02-06 05:13] LABS: ABG Base Excess 2 mEq/L (-2 to 3); ABG HCO3 27 mEq/L (21-27); ABG Oxygen Saturation 97 % (95-98); ABG PCO2 43 mmHg (35-45); ABG PH 7.41 pH Units (7.32-7.45); ABG PO2 90 mmHg (85-104); ABG TCO2 28 mEq/L (20-26); Blood Gas Modality AF; Blood Gas VT 500 cc
[2021-02-06] MEDS: *HR* Heparin 5,000 UNIT/ML VIAL SQ SCH ×3 (05:21→20:16)
[2021-02-06] MEDS: Norepinephrine 4 MG/254 ML IV.SOLN IVC SCH (05:21)
[2021-02-06] MEDS: Vancomycin Oral Soln 125 MG/2.5 ML UDC PO SCH ×4 (05:21→23:13)
[2021-02-06] MEDS: Nystatin SUSP 5 ML UD.LIQ PO SCH ×4 (07:21→20:16)
[2021-02-06] MEDS: Chlorhexidine Rinse 15 ML MOUTHWASH MM SCH ×2 (07:21→20:16)
[2021-02-06] MEDS: Pantoprazole 40 MG VIAL IVP SCH (07:21)
[2021-02-06] MEDS: Cholecalciferol (D-3) 1,000 UNIT (25MCG) TABLET PO SCH (07:22)
[2021-02-06] MEDS: Meropenem 1,000 MG in Water for inj. (sterile) 20 ML IVP SCH ×3 (07:22→23:13)
[2021-02-06] MEDS: Fluconazole 400 MG/200 ML 400 MG/200 ML BAG IVPB SCH (07:22)
[2021-02-06] MEDS: Aspirin 81 MG TAB.CHEW GTUBE SCH (07:22)
[2021-02-06] MEDS: MethylPREDNISolone 40 MG/ML VIAL IVP SCH ×3 (07:22→23:13)
[2021-02-06] MEDS: Midazolam HCl 50 MG/100 ML IV.SOLN IVC SCH (14:09)
[2021-02-06] MEDS: *HR* FentaNYL (PF) 100 MCG/2 ML VIAL IVP PRN (15:35)
[2021-02-06] MEDS: amLODIPine 5 MG TABLET PO SCH (18:03)
[2021-02-06] MEDS: traZODone 50 MG TABLET PO SCH (20:16)
[2021-02-07] MEDS: Artificial Tears SOLN 15 ML BOTTLE BOTH EYES SCH ×3 (00:06→11:25)
[2021-02-07] MEDS: Ipratropium/Albuterol Neb 3 ML IH SCH ×4 (03:25→22:08)
[2021-02-07 03:42] LABS: Hematocrit 33.9 % (37.5-50.1); Hemoglobin 10.4 g/dL (12.9-16.9); Mean Corpuscular HGB Conc 30.7 g/dL (31.6-35.5); Mean Corpuscular Hemoglobin 29.5 pg (28.0-33.3); Mean Platelet Volume 9.7 fL (9.4-12.4); Platelet Count 296 K/mcL (140-400); Red Blood Count 3.53 M/mcL (4.19-5.50); Red Cell Distribution Width 17.2 % (11.5-14.5); White Blood Count 21.7 K/mcL (4.3-11.1)
[2021-02-07] MEDS: Norepinephrine 4 MG/254 ML IV.SOLN IVC SCH (03:49)
[2021-02-07 04:06] LABS: BUN/Creatinine Ratio 49 (6-26); Blood Urea Nitrogen 36 mg/dL (8-23); Calcium 8.5 mg/dL (8.6-10.3); Carbon Dioxide 30 mEq/L (23-29); Chloride 106 mEq/L (98-107); Glucose 170 mg/dL (70-105); Magnesium 2.3 mg/dL (1.6-2.6); Osmolality,Calculated 308 (280-300); Phosphorous 2.3 mg/dL (2.7-4.5); Potassium 3.8 mEq/L (3.5-5.1); Sodium 143 mEq/L (136-145); eGFR For African Americans > 60 (> 60); eGFR For Non-African Americans > 60 (> 60)
[2021-02-07] MEDS: Insulin LISPRO 300 UNITS/3 ML VIAL SUBQ SCH ×6 (04:07→23:21)
[2021-02-07] MEDS: Vancomycin Oral Soln 125 MG/2.5 ML UDC PO SCH ×4 (04:08→23:20)
[2021-02-07] MEDS: *HR* Heparin 5,000 UNIT/ML VIAL SQ SCH (05:26)
[2021-02-07] MEDS: Meropenem 1,000 MG in Water for inj. (sterile) 20 ML IVP SCH ×3 (07:19→23:20)
[2021-02-07] MEDS: Nystatin SUSP 5 ML UD.LIQ PO SCH ×4 (07:20→20:12)
[2021-02-07] MEDS: Aspirin 81 MG TAB.CHEW GTUBE SCH (07:20)
[2021-02-07] MEDS: Cholecalciferol (D-3) 1,000 UNIT (25MCG) TABLET PO SCH (07:20)
[2021-02-07] MEDS: Chlorhexidine Rinse 15 ML MOUTHWASH MM SCH (07:20)
[2021-02-07] MEDS: amLODIPine 5 MG TABLET PO SCH (07:20)
[2021-02-07] MEDS: Pantoprazole 40 MG VIAL IVP SCH (07:20)
[2021-02-07] MEDS: MethylPREDNISolone 40 MG/ML VIAL IVP SCH ×3 (07:20→23:21)
[2021-02-07] MEDS ORDERED: E-Z-PAQUE (BARIUM SULF) SUSP 1 BOTTLE PO ONE (08:57)
[2021-02-07] MEDS ORDERED: E-Z-HD (BARIUM SULF) SUSPENSION PO ONE (08:57)
[2021-02-07] MEDS: Fluconazole 400 MG/200 ML 400 MG/200 ML BAG IVPB SCH (09:04)
[2021-02-07] MEDS: *HR* Enoxaparin 100 MG/ML SYRINGE SQ SCH ×2 (11:24→20:12)
[2021-02-07] MEDS: Midazolam HCl 50 MG/100 ML IV.SOLN IVC SCH (12:34)
[2021-02-07] MEDS: *HR* FentaNYL (PF) 100 MCG/2 ML VIAL IVP PRN (20:12)
[2021-02-07] MEDS: traZODone 50 MG TABLET PO SCH (20:12)
[2021-02-07] MEDS ORDERED: Melatonin 3 MG TABLET PO SCH (21:00)
[2021-02-08] MEDS: Insulin LISPRO 300 UNITS/3 ML VIAL SUBQ SCH ×5 (03:26→20:37)
[2021-02-08 03:42] LABS: Hematocrit 34.3 % (37.5-50.1); Hemoglobin 10.7 g/dL (12.9-16.9); Mean Corpuscular HGB Conc 31.2 g/dL (31.6-35.5); Mean Corpuscular Hemoglobin 29.6 pg (28.0-33.3); Mean Corpuscular Volume 94.8 fL (83.0-100.0); Mean Platelet Volume 9.8 fL (9.4-12.4); Platelet Count 327 K/mcL (140-400); Red Blood Count 3.62 M/mcL (4.19-5.50); Red Cell Distribution Width 17.3 % (11.5-14.5); White Blood Count 21.2 K/mcL (4.3-11.1)
[2021-02-08] MEDS: Ipratropium/Albuterol Neb 3 ML IH SCH ×4 (03:51→22:22)
[2021-02-08 03:56] LABS: VBG Ionized Calcium 1.12 mmol/L (1.15-1.35)
[2021-02-08 04:02] LABS: Magnesium 2.7 mg/dL (1.6-2.6)
[2021-02-08 04:03] LABS: BUN/Creatinine Ratio 49 (6-26); Blood Urea Nitrogen 36 mg/dL (8-23); Calcium 8.6 mg/dL (8.6-10.3); Carbon Dioxide 27 mEq/L (23-29); Chloride 105 mEq/L (98-107); Glucose 154 mg/dL (70-105); Osmolality,Calculated 301 (280-300); Potassium 4.5 mEq/L (3.5-5.1); Sodium 140 mEq/L (136-145); eGFR For African Americans > 60 (> 60); eGFR For Non-African Americans > 60 (> 60)
[2021-02-08] MEDS: Vancomycin Oral Soln 125 MG/2.5 ML UDC PO SCH ×4 (04:24→23:37)
[2021-02-08] MEDS: Nystatin SUSP 5 ML UD.LIQ PO SCH ×4 (07:48→20:36)
[2021-02-08] MEDS: Pantoprazole 40 MG VIAL IVP SCH (07:48)
[2021-02-08] MEDS: Fluconazole 400 MG/200 ML 400 MG/200 ML BAG IVPB SCH (07:48)
[2021-02-08] MEDS: MethylPREDNISolone 40 MG/ML VIAL IVP SCH ×2 (07:48→16:21)
[2021-02-08] MEDS: Cholecalciferol (D-3) 1,000 UNIT (25MCG) TABLET PO SCH (07:48)
[2021-02-08] MEDS: *HR* Enoxaparin 100 MG/ML SYRINGE SQ SCH ×2 (07:49→20:37)
[2021-02-08] MEDS: amLODIPine 5 MG TABLET PO SCH (07:49)
[2021-02-08] MEDS: Meropenem 1,000 MG in Water for inj. (sterile) 20 ML IVP SCH ×3 (07:49→23:38)
[2021-02-08] MEDS: Aspirin 81 MG TAB.CHEW GTUBE SCH (07:49)
[2021-02-08] MEDS ORDERED: GuaiFENesin Liq 200 MG/10 ML UDC GTUBE PRN (16:47)
[2021-02-08] MEDS ORDERED: Dexmedetomidine HCl 400 MCG/100 ML MLS IVC SCH (16:47)
[2021-02-08] MEDS ORDERED: *HR* Dextrose 50 % in Water (Vial) 50 ML VIAL IVP PRN (16:47)
[2021-02-08] MEDS ORDERED: Dextrose Gel 15 GM/37.5 ML TUBE PO PRN ×2 (16:47)
[2021-02-08] MEDS ORDERED: *HR* FentaNYL (PF) 100 MCG/2 ML VIAL IVP PRN (16:47)
[2021-02-08] MEDS ORDERED: Albuterol 2.5 MG/3 ML NEBULIZER IH PRN (16:47)
[2021-02-08] MEDS: Melatonin 3 MG TABLET PO SCH (20:36)
[2021-02-09] MEDS ORDERED: MethylPREDNISolone 40 MG/ML VIAL IVP SCH
[2021-02-09] MEDS: Insulin LISPRO 300 UNITS/3 ML VIAL SUBQ SCH ×6 (00:19→19:49)
[2021-02-09 03:33] LABS: Hematocrit 32.9 % (37.5-50.1); Hemoglobin 10.4 g/dL (12.9-16.9); Mean Corpuscular HGB Conc 31.6 g/dL (31.6-35.5); Mean Corpuscular Hemoglobin 29.6 pg (28.0-33.3); Mean Corpuscular Volume 93.7 fL (83.0-100.0); Mean Platelet Volume 10.4 fL (9.4-12.4); Platelet Count 302 K/mcL (140-400); Red Blood Count 3.51 M/mcL (4.19-5.50); Red Cell Distribution Width 17.4 % (11.5-14.5); White Blood Count 17.5 K/mcL (4.3-11.1)
[2021-02-09 03:55] LABS: Magnesium 2.3 mg/dL (1.6-2.6); Phosphorous 3.9 mg/dL (2.7-4.5)
[2021-02-09] MEDS: Ipratropium/Albuterol Neb 3 ML IH SCH ×4 (04:28→20:25)
[2021-02-09] MEDS: Vancomycin Oral Soln 125 MG/2.5 ML UDC PO SCH ×3 (05:28→16:51)
[2021-02-09] MEDS: Cholecalciferol (D-3) 1,000 UNIT (25MCG) TABLET PO SCH (07:55)
[2021-02-09] MEDS: Nystatin SUSP 5 ML UD.LIQ PO SCH ×4 (07:56→20:06)
[2021-02-09] MEDS: Aspirin 81 MG TAB.CHEW GTUBE SCH (07:56)
[2021-02-09] MEDS: *HR* Enoxaparin 100 MG/ML SYRINGE SQ SCH ×2 (07:56→20:07)
[2021-02-09] MEDS: Fluconazole 400 MG/200 ML 400 MG/200 ML BAG IVPB SCH (07:56)
[2021-02-09] MEDS: amLODIPine 5 MG TABLET PO SCH (07:56)
[2021-02-09] MEDS: Meropenem 1,000 MG in Water for inj. (sterile) 20 ML IVP SCH ×2 (07:57→15:59)
[2021-02-09] MEDS: MethylPREDNISolone 40 MG/ML VIAL IVP SCH ×2 (08:07→20:07)
[2021-02-09] MEDS: Melatonin 3 MG TABLET PO SCH (20:06)
[2021-02-10] MEDS: Insulin LISPRO 300 UNITS/3 ML VIAL SUBQ SCH ×5 (00:05→20:17)
[2021-02-10] MEDS: Meropenem 1,000 MG in Water for inj. (sterile) 20 ML IVP SCH ×3 (00:09→18:26)
[2021-02-10] MEDS: Vancomycin Oral Soln 125 MG/2.5 ML UDC PO SCH ×4 (00:10→18:27)
[2021-02-10 00:55] LABS: Hematocrit 34.4 % (37.5-50.1); Hemoglobin 10.6 g/dL (12.9-16.9); Mean Corpuscular HGB Conc 30.8 g/dL (31.6-35.5); Mean Corpuscular Hemoglobin 29.2 pg (28.0-33.3); Mean Corpuscular Volume 94.8 fL (83.0-100.0); Mean Platelet Volume 10.2 fL (9.4-12.4); Nucleated Red Blood Cells 0.5 /100 WBC (0); Platelet Count 275 K/mcL (140-400); Red Blood Count 3.63 M/mcL (4.19-5.50); Red Cell Distribution Width 17.2 % (11.5-14.5); White Blood Count 15.3 K/mcL (4.3-11.1)
[2021-02-10 01:09] LABS: INR 1.3; Prothrombin Time 14.4 Seconds (9.4-12.1)
[2021-02-10 01:14] LABS: Alanine Aminotransferase 30 Units/L (7-52); Albumin 2.8 g/dL (3.5-5.7); Albumin/Globulin Ratio 0.9 (1.1-2.2); Alkaline Phosphatase 43 Units/L (34-104); Aspartate Amino Transferase 16 Units/L (13-39); BUN/Creatinine Ratio 46 (6-26); Bilirubin,Direct 0.1 mg/dL (0.0-0.2); Bilirubin,Indirect 0.5 mg/dL (0.0-1.0); Bilirubin,Total 0.6 mg/dL (0.3-1.0); Blood Urea Nitrogen 34 mg/dL (8-23); C-Reactive Protein 17 mg/L (Less than 10); Calcium 8.3 mg/dL (8.6-10.3); Carbon Dioxide 23 mEq/L (23-29); Chloride 102 mEq/L (98-107); Glucose 150 mg/dL (70-105); Magnesium 2.3 mg/dL (1.6-2.6); Osmolality,Calculated 286 (280-300); Phosphorous 3.9 mg/dL (2.7-4.5); Potassium 4.9 mEq/L (3.5-5.1); Sodium 133 mEq/L (136-145); Total Protein 5.8 g/dL (6.4-8.9); eGFR For African Americans > 60 (> 60); eGFR For Non-African Americans > 60 (> 60)
[2021-02-10 01:20] LABS: Anisocytosis 1+ (Not Present); Eosinophils # 0.3 K/mcL (0.0-0.6); Lymphocytes # 0.9 K/mcL (0.6-4.6); Monocytes # 0.6 K/mcL (0.0-1.3); Neutrophils # 12.2 K/mcL (1.6-8.9); Platelet Estimate Normal (Normal); Polychromasia 1+ (Not Present); Toxic Granulation Present (Not Present)
[2021-02-10 01:23] LABS: Estimated Average Glucose 120 mg/dl; Hemoglobin A1C 5.8 %
[2021-02-10] MEDS: Ipratropium/Albuterol Neb 3 ML IH SCH ×4 (04:07→23:35)
[2021-02-10] MEDS ORDERED: Dextrose Gel 15 GM/37.5 ML TUBE PO PRN ×2 (10:59)
[2021-02-10] MEDS ORDERED: *HR* Dextrose 50 % in Water (Vial) 50 ML VIAL IVP PRN (10:59)
[2021-02-10] MEDS: Fluconazole 400 MG/200 ML 400 MG/200 ML BAG IVPB SCH (12:23)
[2021-02-10] MEDS: *HR* Enoxaparin 100 MG/ML SYRINGE SQ SCH ×2 (12:24→20:06)
[2021-02-10] MEDS: Cholecalciferol (D-3) 1,000 UNIT (25MCG) TABLET PO SCH (12:25)
[2021-02-10] MEDS: amLODIPine 5 MG TABLET PO SCH (12:25)
[2021-02-10] MEDS: MethylPREDNISolone 40 MG/ML VIAL IVP SCH ×2 (12:25→20:07)
[2021-02-10] MEDS: Aspirin 81 MG TAB.CHEW GTUBE SCH (12:26)
[2021-02-10] MEDS: Nystatin SUSP 5 ML UD.LIQ PO SCH ×5 (12:26→20:06)
[2021-02-10] MEDS: Acetaminophen 325 MG TABLET PO PRN (20:05)
[2021-02-10] MEDS: Melatonin 3 MG TABLET PO SCH (20:06)
[2021-02-11 00:32] LABS: Hemoglobin 11.8 g/dL (12.9-16.9); Mean Corpuscular HGB Conc 31.1 g/dL (31.6-35.5); Mean Corpuscular Hemoglobin 29.4 pg (28.0-33.3); Mean Corpuscular Volume 94.8 fL (83.0-100.0); Mean Platelet Volume 9.8 fL (9.4-12.4); Nucleated Red Blood Cells 0.4 /100 WBC (0); Platelet Count 274 K/mcL (140-400); Red Blood Count 4.01 M/mcL (4.19-5.50); Red Cell Distribution Width 17.2 % (11.5-14.5); White Blood Count 16.1 K/mcL (4.3-11.1)
[2021-02-11 01:03] LABS: Anisocytosis 1+ (Not Present); BUN/Creatinine Ratio 46 (6-26); Blood Urea Nitrogen 34 mg/dL (8-23); Calcium 8.5 mg/dL (8.6-10.3); Carbon Dioxide 22 mEq/L (23-29); Chloride 101 mEq/L (98-107); Glucose 137 mg/dL (70-105); Lymphocytes # 0.6 K/mcL (0.6-4.6); Magnesium 2.3 mg/dL (1.6-2.6); Monocytes # 0.3 K/mcL (0.0-1.3); Neutrophils # 14.2 K/mcL (1.6-8.9); Osmolality,Calculated 284 (280-300); Platelet Estimate Normal (Normal); Sodium 132 mEq/L (136-145); eGFR For African Americans > 60 (> 60); eGFR For Non-African Americans > 60 (> 60)
[2021-02-11] MEDS: Meropenem 1,000 MG in Water for inj. (sterile) 20 ML IVP SCH ×4 (01:07→23:27)
[2021-02-11] MEDS: Vancomycin Oral Soln 125 MG/2.5 ML UDC PO SCH ×5 (01:07→23:27)
[2021-02-11] MEDS: Ipratropium/Albuterol Neb 3 ML IH SCH ×4 (03:42→21:59)
[2021-02-11] MEDS: *HR* Enoxaparin 100 MG/ML SYRINGE SQ SCH ×2 (08:59→20:58)
[2021-02-11] MEDS: Cholecalciferol (D-3) 1,000 UNIT (25MCG) TABLET PO SCH (09:00)
[2021-02-11] MEDS: Nystatin SUSP 5 ML UD.LIQ PO SCH ×4 (09:00→20:58)
[2021-02-11] MEDS: Aspirin 81 MG TAB.CHEW GTUBE SCH (09:00)
[2021-02-11] MEDS: amLODIPine 5 MG TABLET PO SCH (09:00)
[2021-02-11] MEDS: Acetaminophen 325 MG TABLET PO PRN (09:01)
[2021-02-11] MEDS: predniSONE 20 MG TABLET PO SCH (09:01)
[2021-02-11] MEDS: Insulin LISPRO 300 UNITS/3 ML VIAL SUBQ SCH ×4 (09:02→20:54)
[2021-02-11] MEDS: Fluconazole 400 MG/200 ML 400 MG/200 ML BAG IVPB SCH (09:03)
[2021-02-11] MEDS: QUEtiapine Fumarate 25 MG TABLET PO SCH (19:39)
[2021-02-11] MEDS: Melatonin 3 MG TABLET PO SCH (20:58)
[2021-02-12 02:56] LABS: Hemoglobin 11.7 g/dL (12.9-16.9); Mean Corpuscular HGB Conc 31.6 g/dL (31.6-35.5); Mean Corpuscular Volume 94.9 fL (83.0-100.0); Mean Platelet Volume 10.3 fL (9.4-12.4); Platelet Count 289 K/mcL (140-400); Red Cell Distribution Width 17.2 % (11.5-14.5); White Blood Count 21.4 K/mcL (4.3-11.1)
[2021-02-12 02:57] LABS: BUN/Creatinine Ratio 43 (6-26); Blood Urea Nitrogen 30 mg/dL (8-23); Calcium 8.4 mg/dL (8.6-10.3); Carbon Dioxide 25 mEq/L (23-29); Chloride 101 mEq/L (98-107); Glucose 96 mg/dL (70-105); Magnesium 2.2 mg/dL (1.6-2.6); Osmolality,Calculated 284 (280-300); Potassium 4.3 mEq/L (3.5-5.1); Sodium 134 mEq/L (136-145); eGFR For African Americans > 60 (> 60); eGFR For Non-African Americans > 60 (> 60)
[2021-02-12] MEDS: Ipratropium/Albuterol Neb 3 ML IH SCH ×4 (03:38→22:40)
[2021-02-12] MEDS: Vancomycin Oral Soln 125 MG/2.5 ML UDC PO SCH ×3 (05:36→17:07)
[2021-02-12] MEDS: Insulin LISPRO 300 UNITS/3 ML VIAL SUBQ SCH ×4 (07:20→20:36)
[2021-02-12] MEDS: Nystatin SUSP 5 ML UD.LIQ PO SCH ×4 (07:54→20:51)
[2021-02-12] MEDS: Fluconazole 400 MG/200 ML 400 MG/200 ML BAG IVPB SCH (07:56)
[2021-02-12] MEDS: *HR* Enoxaparin 100 MG/ML SYRINGE SQ SCH ×2 (07:57→20:51)
[2021-02-12] MEDS: predniSONE 20 MG TABLET PO SCH (07:57)
[2021-02-12] MEDS: Aspirin 81 MG TAB.CHEW GTUBE SCH (07:58)
[2021-02-12] MEDS: Cholecalciferol (D-3) 1,000 UNIT (25MCG) TABLET PO SCH (07:58)
[2021-02-12] MEDS: amLODIPine 5 MG TABLET PO SCH (07:58)
[2021-02-12] MEDS: Meropenem 1,000 MG in Water for inj. (sterile) 20 ML IVP SCH ×2 (07:58→17:07)
[2021-02-12] MEDS ORDERED: E-Z-HD (BARIUM SULF) SUSPENSION PO ONE (13:23)
[2021-02-12] MEDS ORDERED: E-Z-PAQUE (BARIUM SULF) SUSP 1 BOTTLE PO ONE (13:23)
[2021-02-12] MEDS: QUEtiapine Fumarate 25 MG TABLET PO SCH (20:37)
[2021-02-12] MEDS: Mag Hydrox/Al Hydrox/Simeth 30 ML UDC PO PRN (20:51)
[2021-02-12] MEDS: Melatonin 3 MG TABLET PO SCH (20:51)
[2021-02-12] MEDS: Acetaminophen 325 MG TABLET PO PRN (20:51)
[2021-02-13] MEDS: Vancomycin Oral Soln 125 MG/2.5 ML UDC PO SCH ×4 (00:30→17:03)
[2021-02-13] MEDS: Meropenem 1,000 MG in Water for inj. (sterile) 20 ML IVP SCH (00:30)
[2021-02-13] MEDS: Ipratropium/Albuterol Neb 3 ML IH SCH ×4 (03:46→22:10)
[2021-02-13 05:20] LABS: Hematocrit 38.1 % (37.5-50.1); Hemoglobin 12.1 g/dL (12.9-16.9); Mean Corpuscular HGB Conc 31.8 g/dL (31.6-35.5); Mean Corpuscular Hemoglobin 29.8 pg (28.0-33.3); Mean Corpuscular Volume 93.8 fL (83.0-100.0); Platelet Count 373 K/mcL (140-400); Red Blood Count 4.06 M/mcL (4.19-5.50); Red Cell Distribution Width 17.2 % (11.5-14.5); White Blood Count 24.4 K/mcL (4.3-11.1)
[2021-02-13 05:37] LABS: BUN/Creatinine Ratio 37 (6-26); Blood Urea Nitrogen 28 mg/dL (8-23); Calcium 8.4 mg/dL (8.6-10.3); Carbon Dioxide 25 mEq/L (23-29); Chloride 98 mEq/L (98-107); Glucose 112 mg/dL (70-105); Osmolality,Calculated 278 (280-300); Potassium 4.2 mEq/L (3.5-5.1); Sodium 131 mEq/L (136-145); eGFR For African Americans > 60 (> 60); eGFR For Non-African Americans > 60 (> 60)
[2021-02-13] MEDS: Insulin LISPRO 300 UNITS/3 ML VIAL SUBQ SCH ×4 (07:40→20:25)
[2021-02-13] MEDS: Cholecalciferol (D-3) 1,000 UNIT (25MCG) TABLET PO SCH (09:40)
[2021-02-13] MEDS: *HR* Enoxaparin 100 MG/ML SYRINGE SQ SCH ×2 (09:40→20:31)
[2021-02-13] MEDS: Aspirin 81 MG TAB.CHEW GTUBE SCH (09:41)
[2021-02-13] MEDS: predniSONE 20 MG TABLET PO SCH (09:41)
[2021-02-13] MEDS: Nystatin SUSP 5 ML UD.LIQ PO SCH (09:41)
[2021-02-13] MEDS: amLODIPine 5 MG TABLET PO SCH (09:42)
[2021-02-13] MEDS: Fluconazole 100 MG TABLET PO SCH (09:42)
[2021-02-13 11:44] LABS: Hematocrit 37.2 % (37.5-50.1); Hemoglobin 11.8 g/dL (12.9-16.9); Mean Corpuscular HGB Conc 31.7 g/dL (31.6-35.5); Mean Corpuscular Hemoglobin 30.3 pg (28.0-33.3); Mean Corpuscular Volume 95.4 fL (83.0-100.0); Nucleated Red Blood Cells 0.1 /100 WBC (0); Platelet Count 315 K/mcL (140-400); Red Cell Distribution Width 17.2 % (11.5-14.5)
[2021-02-13 12:04] LABS: Eosinophils # 0.4 K/mcL (0.0-0.6); Lymphocytes # 1.3 K/mcL (0.6-4.6); Monocytes # 1.7 K/mcL (0.0-1.3); Neutrophils # 17.2 K/mcL (1.6-8.9); Platelet Estimate Normal (Normal)
[2021-02-13] MEDS: Melatonin 3 MG TABLET PO SCH (20:30)
[2021-02-14] MEDS: Vancomycin Oral Soln 125 MG/2.5 ML UDC PO SCH ×6 (01:31→21:15)
[2021-02-14 01:44] LABS: Hematocrit 33.8 % (37.5-50.1); Hemoglobin 10.8 g/dL (12.9-16.9); Mean Corpuscular Hemoglobin 29.6 pg (28.0-33.3); Mean Corpuscular Volume 92.6 fL (83.0-100.0); Mean Platelet Volume 10.1 fL (9.4-12.4); Nucleated Red Blood Cells 0.1 /100 WBC (0); Platelet Count 321 K/mcL (140-400); Red Blood Count 3.65 M/mcL (4.19-5.50); Red Cell Distribution Width 16.9 % (11.5-14.5); White Blood Count 21.8 K/mcL (4.3-11.1)
[2021-02-14 01:55] LABS: BUN/Creatinine Ratio 37 (6-26); Blood Urea Nitrogen 25 mg/dL (8-23); Calcium 8.1 mg/dL (8.6-10.3); Carbon Dioxide 24 mEq/L (23-29); Chloride 98 mEq/L (98-107); Glucose 112 mg/dL (70-105); Osmolality,Calculated 275 (280-300); Potassium 3.9 mEq/L (3.5-5.1); Sodium 130 mEq/L (136-145); eGFR For African Americans > 60 (> 60); eGFR For Non-African Americans > 60 (> 60)
[2021-02-14 02:24] LABS: Lymphocytes # 2.2 K/mcL (0.6-4.6); Monocytes # 1.3 K/mcL (0.0-1.3); Neutrophils # 17.9 K/mcL (1.6-8.9)
[2021-02-14 02:25] LABS: Anisocytosis 1+ (Not Present); Microcytosis Present (Not Present); Platelet Estimate Normal (Normal); Reactive Lymphocytes Present (Not Present)
[2021-02-14] MEDS: Ipratropium/Albuterol Neb 3 ML IH SCH ×4 (04:13→22:11)
[2021-02-14] MEDS ORDERED: *HR* LORazepam 2 MG/ML VIAL IVP ONE (06:07)
[2021-02-14] MEDS: Insulin LISPRO 300 UNITS/3 ML VIAL SUBQ SCH ×4 (07:20→21:11)
[2021-02-14] MEDS ORDERED: GuaiFENesin Liq 200 MG/10 ML UDC PO PRN (07:32)
[2021-02-14] MEDS: Fluconazole 100 MG TABLET PO SCH (09:50)
[2021-02-14] MEDS: Aspirin 81 MG TAB.CHEW PO SCH (09:50)
[2021-02-14] MEDS: *HR* Enoxaparin 100 MG/ML SYRINGE SQ SCH ×2 (09:51→21:17)
[2021-02-14] MEDS: amLODIPine 5 MG TABLET PO SCH (09:51)
[2021-02-14] MEDS: Cholecalciferol (D-3) 1,000 UNIT (25MCG) TABLET PO SCH (09:52)
[2021-02-14] MEDS: predniSONE 20 MG TABLET PO SCH (09:52)
[2021-02-14] MEDS: Acetaminophen 325 MG TABLET PO PRN (11:06)
[2021-02-14] MEDS: Mag Hydrox/Al Hydrox/Simeth 30 ML UDC PO PRN (19:25)
[2021-02-14] MEDS: Melatonin 3 MG TABLET PO SCH (21:14)
[2021-02-15 03:12] LABS: Eosinophils % 0.9 %; Mean Corpuscular Volume 94.3 fL (83.0-100.0); Monocytes % 5.7 %; Nucleated Red Blood Cells 0.2 /100 WBC (0); Platelet Count 355 K/mcL (140-400)
[2021-02-15 03:14] LABS: Basophils # 0.1 K/mcL (0.0-0.2); Basophils % 0.4 %; Eosinophils # 0.2 K/mcL (0.0-0.6); Hematocrit 31.6 % (37.5-50.1); Immature Granulocytes % 5.8 % (0-4); Lymphocytes # 1.9 K/mcL (0.6-4.6); Lymphocytes % 7.2 %; Mean Corpuscular HGB Conc 31.6 g/dL (31.6-35.5); Mean Corpuscular Hemoglobin 29.9 pg (28.0-33.3); Monocytes # 1.5 K/mcL (0.0-1.3); Red Blood Count 3.35 M/mcL (4.19-5.50); White Blood Count 26.8 K/mcL (4.3-11.1)
[2021-02-15 03:16] LABS: Neutrophils # 21.4 K/mcL (1.6-8.9)
[2021-02-15 03:35] LABS: BUN/Creatinine Ratio 37 (6-26); Blood Urea Nitrogen 23 mg/dL (8-23); Calcium 8.3 mg/dL (8.6-10.3); Carbon Dioxide 25 mEq/L (23-29); Chloride 97 mEq/L (98-107); Glucose 118 mg/dL (70-105); Osmolality,Calculated 277 (280-300); Sodium 131 mEq/L (136-145); eGFR For African Americans > 60 (> 60); eGFR For Non-African Americans > 60 (> 60)
[2021-02-15 03:47] LABS: Anisocytosis 1+ (Not Present); Platelet Estimate Normal (Normal); Polychromasia 1+ (Not Present); Smudge Cells Present (Not Present)
[2021-02-15] MEDS: Ipratropium/Albuterol Neb 3 ML IH SCH ×4 (04:04→21:45)
[2021-02-15] MEDS: Insulin LISPRO 300 UNITS/3 ML VIAL SUBQ SCH ×4 (08:14→20:44)
[2021-02-15] MEDS: Fluconazole 100 MG TABLET PO SCH (08:15)
[2021-02-15] MEDS: Cholecalciferol (D-3) 1,000 UNIT (25MCG) TABLET PO SCH (08:15)
[2021-02-15] MEDS: Aspirin 81 MG TAB.CHEW PO SCH (08:15)
[2021-02-15] MEDS: amLODIPine 5 MG TABLET PO SCH (08:15)
[2021-02-15] MEDS: predniSONE 20 MG TABLET PO SCH (08:15)
[2021-02-15] MEDS: Vancomycin Oral Soln 125 MG/2.5 ML UDC PO SCH ×4 (08:15→20:43)
[2021-02-15] MEDS: *HR* Enoxaparin 100 MG/ML SYRINGE SQ SCH ×2 (08:15→20:42)
[2021-02-15] MEDS ORDERED: Naloxone 0.4 MG/ML INJ IVP PRN (11:22)
[2021-02-15] MEDS: *HR* OxyCODONE Immed Rel 5 MG TABLET PO PRN (13:49)
[2021-02-15 15:01] LABS: Hematocrit 29.4 % (37.5-50.1); Hemoglobin 9.2 g/dL (12.9-16.9); Mean Corpuscular HGB Conc 31.3 g/dL (31.6-35.5); Mean Corpuscular Hemoglobin 29.9 pg (28.0-33.3); Mean Corpuscular Volume 95.5 fL (83.0-100.0); Mean Platelet Volume 10.1 fL (9.4-12.4); Nucleated Red Blood Cells 0.2 /100 WBC (0); Platelet Count 326 K/mcL (140-400); Red Blood Count 3.08 M/mcL (4.19-5.50); Red Cell Distribution Width 17.2 % (11.5-14.5); White Blood Count 23.8 K/mcL (4.3-11.1)
[2021-02-15 15:23] LABS: Neutrophils # 21.9 K/mcL (1.6-8.9); Platelet Estimate Normal (Normal)
[2021-02-15] MEDS: Melatonin 3 MG TABLET PO SCH (20:43)
[2021-02-16 02:31] LABS: Basophils % 0.2 %; Eosinophils # 0.3 K/mcL (0.0-0.6); Eosinophils % 1.3 %; Hematocrit 28.6 % (37.5-50.1); Immature Granulocytes % 5.1 % (0-4); Lymphocytes # 1.8 K/mcL (0.6-4.6); Lymphocytes % 8.6 %; Mean Corpuscular HGB Conc 31.5 g/dL (31.6-35.5); Mean Corpuscular Hemoglobin 30.1 pg (28.0-33.3); Mean Corpuscular Volume 95.7 fL (83.0-100.0); Mean Platelet Volume 9.7 fL (9.4-12.4); Monocytes # 1.5 K/mcL (0.0-1.3); Neutrophils # 16.7 K/mcL (1.6-8.9); Nucleated Red Blood Cells 0.4 /100 WBC (0); Platelet Count 275 K/mcL (140-400); Red Blood Count 2.99 M/mcL (4.19-5.50); Red Cell Distribution Width 17.5 % (11.5-14.5); Segmented Neutrophils % 77.8 %; White Blood Count 21.4 K/mcL (4.3-11.1)
[2021-02-16 02:51] LABS: Platelet Estimate Normal (Normal)
[2021-02-16 02:54] LABS: BUN/Creatinine Ratio 37 (6-26); Blood Urea Nitrogen 23 mg/dL (8-23); Carbon Dioxide 24 mEq/L (23-29); Chloride 97 mEq/L (98-107); Glucose 85 mg/dL (70-105); Osmolality,Calculated 271 (280-300); Potassium 4.3 mEq/L (3.5-5.1); Sodium 129 mEq/L (136-145); eGFR For African Americans > 60 (> 60); eGFR For Non-African Americans > 60 (> 60)
[2021-02-16] MEDS: Ipratropium/Albuterol Neb 3 ML IH SCH ×4 (03:30→22:18)
[2021-02-16] MEDS: Insulin LISPRO 300 UNITS/3 ML VIAL SUBQ SCH ×4 (07:21→21:52)
[2021-02-16] MEDS: Aspirin 81 MG TAB.CHEW PO SCH (07:53)
[2021-02-16] MEDS: amLODIPine 5 MG TABLET PO SCH (07:53)
[2021-02-16] MEDS: Cholecalciferol (D-3) 1,000 UNIT (25MCG) TABLET PO SCH (07:53)
[2021-02-16] MEDS: predniSONE 10 MG TABLET PO SCH (07:53)
[2021-02-16] MEDS: Fluconazole 100 MG TABLET PO SCH (07:53)
[2021-02-16] MEDS: Vancomycin Oral Soln 125 MG/2.5 ML UDC PO SCH ×4 (07:54→20:08)
[2021-02-16] MEDS: *HR* Enoxaparin 100 MG/ML SYRINGE SQ SCH ×2 (07:54→20:08)
[2021-02-16] MEDS: *HR* OxyCODONE Immed Rel 5 MG TABLET PO PRN ×2 (10:22→20:06)
[2021-02-16] MEDS: Melatonin 3 MG TABLET PO SCH (20:07)
[2021-02-17] MEDS: Ipratropium/Albuterol Neb 3 ML IH SCH ×4 (03:04→22:34)
[2021-02-17 04:52] LABS: Hematocrit 32.2 % (37.5-50.1); Hemoglobin 9.7 g/dL (12.9-16.9); Mean Corpuscular HGB Conc 30.1 g/dL (31.6-35.5); Mean Corpuscular Hemoglobin 30.4 pg (28.0-33.3); Mean Corpuscular Volume 100.9 fL (83.0-100.0); Mean Platelet Volume 9.6 fL (9.4-12.4); Nucleated Red Blood Cells 0.2 /100 WBC (0); Platelet Count 310 K/mcL (140-400); Red Blood Count 3.19 M/mcL (4.19-5.50); Red Cell Distribution Width 17.6 % (11.5-14.5); White Blood Count 21.4 K/mcL (4.3-11.1)
[2021-02-17 05:08] LABS: BUN/Creatinine Ratio 30 (6-26); Blood Urea Nitrogen 20 mg/dL (8-23); Calcium 8.5 mg/dL (8.6-10.3); Carbon Dioxide 24 mEq/L (23-29); Chloride 94 mEq/L (98-107); Glucose 114 mg/dL (70-105); Osmolality,Calculated 267 (280-300); Potassium 4.5 mEq/L (3.5-5.1); Sodium 127 mEq/L (136-145); eGFR For African Americans > 60 (> 60); eGFR For Non-African Americans > 60 (> 60)
[2021-02-17 05:15] LABS: Anisocytosis 1+ (Not Present); Lymphocytes # 1.3 K/mcL (0.6-4.6); Monocytes # 0.9 K/mcL (0.0-1.3); Neutrophils # 18.4 K/mcL (1.6-8.9)
[2021-02-17 05:16] LABS: Macrocytosis Present (Not Present); Platelet Estimate Normal (Normal)
[2021-02-17] MEDS: Insulin LISPRO 300 UNITS/3 ML VIAL SUBQ SCH ×4 (07:24→19:38)
[2021-02-17] MEDS: amLODIPine 5 MG TABLET PO SCH (07:46)
[2021-02-17] MEDS: *HR* Enoxaparin 100 MG/ML SYRINGE SQ SCH ×2 (07:47→19:34)
[2021-02-17] MEDS: predniSONE 10 MG TABLET PO SCH (07:47)
[2021-02-17] MEDS: Cholecalciferol (D-3) 1,000 UNIT (25MCG) TABLET PO SCH (07:47)
[2021-02-17] MEDS: Fluconazole 100 MG TABLET PO SCH (07:47)
[2021-02-17] MEDS: Aspirin 81 MG TAB.CHEW PO SCH (07:47)
[2021-02-17] MEDS: Vancomycin Oral Soln 125 MG/2.5 ML UDC PO SCH ×4 (07:47→19:35)
[2021-02-17] MEDS: *HR* OxyCODONE Immed Rel 5 MG TABLET PO PRN ×2 (09:57→17:49)
[2021-02-17] MEDS: Melatonin 3 MG TABLET PO SCH (19:36)
[2021-02-18] MEDS: Ipratropium/Albuterol Neb 3 ML IH SCH ×4 (04:11→22:44)
[2021-02-18 05:49] LABS: Basophils # 0.1 K/mcL (0.0-0.2); Basophils % 0.4 %; Eosinophils # 0.2 K/mcL (0.0-0.6); Eosinophils % 1.4 %; Hematocrit 27.9 % (37.5-50.1); Hemoglobin 8.5 g/dL (12.9-16.9); Immature Granulocytes % 4.3 % (0-4); Lymphocytes # 1.9 K/mcL (0.6-4.6); Lymphocytes % 11.3 %; Mean Corpuscular HGB Conc 30.5 g/dL (31.6-35.5); Mean Corpuscular Hemoglobin 29.1 pg (28.0-33.3); Mean Corpuscular Volume 95.5 fL (83.0-100.0); Mean Platelet Volume 9.7 fL (9.4-12.4); Monocytes # 1.3 K/mcL (0.0-1.3); Monocytes % 7.8 %; Neutrophils # 12.8 K/mcL (1.6-8.9); Nucleated Red Blood Cells 0.2 /100 WBC (0); Platelet Count 312 K/mcL (140-400); Red Blood Count 2.92 M/mcL (4.19-5.50); Red Cell Distribution Width 17.4 % (11.5-14.5); Segmented Neutrophils % 74.8 %; White Blood Count 17.1 K/mcL (4.3-11.1)
[2021-02-18 06:04] LABS: BUN/Creatinine Ratio 24 (6-26); Blood Urea Nitrogen 15 mg/dL (8-23); Calcium 8.7 mg/dL (8.6-10.3); Carbon Dioxide 29 mEq/L (23-29); Chloride 94 mEq/L (98-107); Glucose 101 mg/dL (70-105); Osmolality,Calculated 273 (280-300); Potassium 4.3 mEq/L (3.5-5.1); Sodium 131 mEq/L (136-145); eGFR For African Americans > 60 (> 60); eGFR For Non-African Americans > 60 (> 60)
[2021-02-18] MEDS: Insulin LISPRO 300 UNITS/3 ML VIAL SUBQ SCH ×4 (07:50→20:49)
[2021-02-18] MEDS: predniSONE 10 MG TABLET PO SCH (09:30)
[2021-02-18] MEDS: amLODIPine 5 MG TABLET PO SCH (09:31)
[2021-02-18] MEDS: Cholecalciferol (D-3) 1,000 UNIT (25MCG) TABLET PO SCH (09:31)
[2021-02-18] MEDS: Aspirin 81 MG TAB.CHEW PO SCH (09:32)
[2021-02-18] MEDS: *HR* Enoxaparin 100 MG/ML SYRINGE SQ SCH ×2 (09:33→20:02)
[2021-02-18] MEDS: Vancomycin Oral Soln 125 MG/2.5 ML UDC PO SCH (09:33)
[2021-02-18] MEDS: Fluconazole 100 MG TABLET PO SCH (09:51)
[2021-02-18] MEDS: *HR* OxyCODONE Immed Rel 5 MG TABLET PO PRN ×2 (09:51→20:02)
[2021-02-18] MEDS ORDERED: MOM Conc 10 ML UD.LIQ PO PRN (15:39)
[2021-02-18] MEDS: Melatonin 3 MG TABLET PO SCH (21:24)
[2021-02-19 01:20] LABS: Hematocrit 26.9 % (37.5-50.1); Hemoglobin 8.4 g/dL (12.9-16.9); Mean Corpuscular HGB Conc 31.2 g/dL (31.6-35.5); Mean Corpuscular Hemoglobin 30.1 pg (28.0-33.3); Mean Corpuscular Volume 96.4 fL (83.0-100.0); Mean Platelet Volume 9.5 fL (9.4-12.4); Platelet Count 302 K/mcL (140-400); Red Blood Count 2.79 M/mcL (4.19-5.50); Red Cell Distribution Width 17.2 % (11.5-14.5); White Blood Count 15.2 K/mcL (4.3-11.1)
[2021-02-19 01:43] LABS: BUN/Creatinine Ratio 21 (6-26); Blood Urea Nitrogen 12 mg/dL (8-23); Calcium 8.7 mg/dL (8.6-10.3); Carbon Dioxide 28 mEq/L (23-29); Chloride 94 mEq/L (98-107); Glucose 97 mg/dL (70-105); Osmolality,Calculated 270 (280-300); Potassium 3.8 mEq/L (3.5-5.1); Sodium 130 mEq/L (136-145); eGFR For African Americans > 60 (> 60); eGFR For Non-African Americans > 60 (> 60)
[2021-02-19] MEDS: Ipratropium/Albuterol Neb 3 ML IH SCH ×3 (03:55→15:40)
[2021-02-19] MEDS: Insulin LISPRO 300 UNITS/3 ML VIAL SUBQ SCH ×2 (07:43→11:52)
[2021-02-19] MEDS: Fluconazole 100 MG TABLET PO SCH (07:52)
[2021-02-19] MEDS: amLODIPine 5 MG TABLET PO SCH (07:53)
[2021-02-19] MEDS: Aspirin 81 MG TAB.CHEW PO SCH (07:53)
[2021-02-19] MEDS: *HR* Enoxaparin 100 MG/ML SYRINGE SQ SCH (07:54)
[2021-02-19] MEDS: Cholecalciferol (D-3) 1,000 UNIT (25MCG) TABLET PO SCH (07:54)
[2021-02-19] MEDS ORDERED: predniSONE 5 MG TABLET PO SCH (09:00)
[2021-02-19 10:46] VITALS: BP 121/75
== END 2021-02-19 16:55 | DRG 870 ==
LOC: EMEROOARM 02:18 → 2NENU 02:18 → ICNU 11:53 → SUATTDRO 12:04 → ICNU 12:18 → 2NENU 02-09 10:56
PROVIDERS: ADMIT Internal Medicine; ATTEND Internal Medicine

== ENCOUNTER 2021-08-05 18:50 | Inpatient (IN) ==
[2021-08-05] MEDS ORDERED: 0.9 % Sodium Chloride 1,000 ML IVC ONE (20:08)
[2021-08-05] MEDS ORDERED: Isovue-370 500 ML BOTTLE IVP ONE (20:38)
[2021-08-05 22:09] LABS: Basophils # 0.1 K/mcL (0.0-0.2); Basophils % 0.6 %; Eosinophils % 0.3 %; Hematocrit 38.4 % (37.5-50.1); Hemoglobin 12.5 g/dL (12.9-16.9); Immature Granulocytes % 0.4 % (0-4); Mean Corpuscular HGB Conc 32.6 g/dL (31.6-35.5); Mean Corpuscular Hemoglobin 29.1 pg (28.0-33.3); Mean Corpuscular Volume 89.5 fL (83.0-100.0); Mean Platelet Volume 9.4 fL (9.4-12.4); Monocytes # 1.1 K/mcL (0.0-1.3); Monocytes % 8.9 %; Neutrophils # 9.7 K/mcL (1.6-8.9); Platelet Count 291 K/mcL (140-400); Red Blood Count 4.29 M/mcL (4.19-5.50); Segmented Neutrophils % 81.8 %; White Blood Count 11.9 K/mcL (4.3-11.1)
[2021-08-05 22:19] LABS: INR 1.4; Prothrombin Time 15.8 Seconds (9.4-12.1)
[2021-08-05 22:22] LABS: Activated Partial Thrombo Time 33.9 Seconds (26.0-36.0)
[2021-08-05 22:59] LABS: Adenovirus Not Detected (Not Detect); Bordetella Pertussis Not Detected (Not Detect); Chlamydophila pneumoniae Not Detected (Not Detect); Coronavirus 229E Not Detected (Not Detect); Coronavirus HKU1 Not Detected (Not Detect); Coronavirus NL63 Not Detected (Not Detect); Coronavirus OC43 Not Detected (Not Detect); Human Metapneumovirus Not Detected (Not Detect); Human Rhinovirus/Enterovirus Not Detected (Not Detect); Influenza A Subtype 2009 H1 Not Detected (Not Detect); Influenza B Not Detected (Not Detect); Mycoplasma pneumoniae Not Detected (Not Detect); Parainfluenza Virus 1 Not Detected (Not Detect); Parainfluenza Virus 2 Not Detected (Not Detect); Parainfluenza Virus 3 Not Detected (Not Detect); Parainfluenza Virus 4 Not Detected (Not Detect); Respiratory Syncytial Virus Not Detected (Not Detect); SARS-CoV-2 Not Detected (Not Detect)
[2021-08-05 23:02] LABS: Alanine Aminotransferase 7 Units/L (7-52); Albumin 3.9 g/dL (3.5-5.7); Albumin/Globulin Ratio 1.3 (1.1-2.2); Alkaline Phosphatase 43 Units/L (34-104); Aspartate Amino Transferase 10 Units/L (13-39); BUN/Creatinine Ratio 9 (6-26); Bilirubin,Direct 0.1 mg/dL (0.0-0.2); Bilirubin,Indirect 0.5 mg/dL (0.0-1.0); Bilirubin,Total 0.6 mg/dL (0.3-1.0); Blood Urea Nitrogen 11 mg/dL (8-23); Calcium 9.3 mg/dL (8.6-10.3); Carbon Dioxide 26 mEq/L (23-29); Chloride 98 mEq/L (98-107); Ethanol < 10 mg/dL (Less than 10); Globulin 3.1 g/dL (2.4-3.5); Glucose 102 mg/dL (70-105); Osmolality,Calculated 278 (280-300); Potassium 4.2 mEq/L (3.5-5.1); Sodium 134 mEq/L (136-145); Troponin I < 0.03 ng/mL (< 0.04); eGFR For African Americans > 60 (> 60); eGFR For Non-African Americans > 60 (> 60)
[2021-08-06] MEDS ORDERED: levoFLOXacin 750 MG TABLET PO ONE (01:01)
[2021-08-06] MEDS ORDERED: levoFLOXacin 750 MG/150 ML 750 MG/150 ML BAG IVPB ONE (01:07)
[2021-08-06 02:32] LABS: VBG HCO3 24 mEq/L (21-27); VBG PCO2 32 mmHg (41-51); VBG PH 7.48 pH Units (7.32-7.42); VBG PO2 220 mmHg (25-50)
[2021-08-06] MEDS ORDERED: Ondansetron 4 MG/2 ML VIAL IVP PRN (05:43)
[2021-08-06] MEDS ORDERED: Naloxone 0.4 MG/ML INJ IVP PRN (05:43)
[2021-08-06] MEDS ORDERED: Melatonin 3 MG TABLET PO PRN (05:43)
[2021-08-06] MEDS ORDERED: Perflutren Lipid Microsphere 1.3 ML in 0.9 % Sodium Chloride 8.7 ML IVP PRN (06:30)
[2021-08-06 07:38] LABS: Basophils % 0.3 %; Eosinophils # 0.1 K/mcL (0.0-0.6); Hematocrit 37.7 % (37.5-50.1); Hemoglobin 11.8 g/dL (12.9-16.9); Immature Granulocytes % 0.4 % (0-4); Lymphocytes # 0.4 K/mcL (0.6-4.6); Lymphocytes % 3.5 %; Mean Corpuscular HGB Conc 31.3 g/dL (31.6-35.5); Mean Corpuscular Hemoglobin 28.8 pg (28.0-33.3); Mean Platelet Volume 9.1 fL (9.4-12.4); Monocytes % 10.1 %; Neutrophils # 8.6 K/mcL (1.6-8.9); Platelet Count 235 K/mcL (140-400); Segmented Neutrophils % 84.7 %; White Blood Count 10.2 K/mcL (4.3-11.1)
[2021-08-06 08:00] LABS: Alanine Aminotransferase 5 Units/L (7-52); Albumin 3.4 g/dL (3.5-5.7); Albumin/Globulin Ratio 1.4 (1.1-2.2); Alkaline Phosphatase 39 Units/L (34-104); Aspartate Amino Transferase 10 Units/L (13-39); BUN/Creatinine Ratio 8 (6-26); Bilirubin,Total 0.8 mg/dL (0.3-1.0); Blood Urea Nitrogen 10 mg/dL (8-23); Calcium 8.9 mg/dL (8.6-10.3); Carbon Dioxide 28 mEq/L (23-29); Chloride 101 mEq/L (98-107); Globulin 2.5 g/dL (2.4-3.5); Glucose 103 mg/dL (70-105); Magnesium 1.8 mg/dL (1.6-2.6); Osmolality,Calculated 275 (280-300); Phosphorous 2.9 mg/dL (2.7-4.5); Potassium 4.1 mEq/L (3.5-5.1); Sodium 133 mEq/L (136-145); Total Protein 5.9 g/dL (6.4-8.9); eGFR For African Americans > 60 (> 60); eGFR For Non-African Americans > 60 (> 60)
[2021-08-06] MEDS: 0.9 % Sodium Chloride 1,000 ML IVC SCH ×2 (10:49→20:57)
[2021-08-06] MEDS: Famotidine 20 MG TABLET PO SCH (14:05)
[2021-08-06] MEDS: Apixaban 5 MG TABLET PO SCH ×2 (14:05→20:57)
[2021-08-06] MEDS: Colchicine 0.6 MG TABLET PO SCH ×2 (14:05→20:56)
[2021-08-06] MEDS: Cholecalciferol (D-3) 1,000 UNIT (25MCG) TABLET PO SCH (14:05)
[2021-08-06] MEDS: Ipratropium 1 PUFF INHALER IH SCH ×4 (15:45→23:18)
[2021-08-06] MEDS: Acetaminophen 325 MG TABLET PO PRN (17:31)
[2021-08-06] MEDS ORDERED: *HR* OxyCODONE Immed Rel 5 MG TABLET PO PRN (19:22)
[2021-08-06] MEDS ORDERED: Ibuprofen 400 MG TABLET PO ONE (19:54)
[2021-08-06] MEDS ORDERED: Ibuprofen 800 MG TABLET PO ONE (21:00)
[2021-08-06] MEDS: Piperacillin/Tazobactam 3.375 GM in 0.9 % Sodium Chloride Mini Bag 100 ML IVPB SCH (23:53)
[2021-08-07 03:06] LABS: Hematocrit 36.3 % (37.5-50.1); Hemoglobin 11.4 g/dL (12.9-16.9); Mean Corpuscular HGB Conc 31.4 g/dL (31.6-35.5); Mean Corpuscular Hemoglobin 28.7 pg (28.0-33.3); Mean Corpuscular Volume 91.4 fL (83.0-100.0); Mean Platelet Volume 9.3 fL (9.4-12.4); Platelet Count 262 K/mcL (140-400); Red Blood Count 3.97 M/mcL (4.19-5.50); White Blood Count 10.4 K/mcL (4.3-11.1)
[2021-08-07 03:27] LABS: BUN/Creatinine Ratio 10 (6-26); Blood Urea Nitrogen 12 mg/dL (8-23); Calcium 8.6 mg/dL (8.6-10.3); Carbon Dioxide 26 mEq/L (23-29); Chloride 103 mEq/L (98-107); Glucose 99 mg/dL (70-105); Osmolality,Calculated 280 (280-300); Sodium 135 mEq/L (136-145); eGFR For African Americans > 60 (> 60); eGFR For Non-African Americans > 60 (> 60)
[2021-08-07] MEDS: Ipratropium 1 PUFF INHALER IH SCH ×5 (04:17→20:02)
[2021-08-07] MEDS: Multivit/Ca/Min/Fe/FA 1 TAB TABLET PO SCH (08:28)
[2021-08-07] MEDS: Colchicine 0.6 MG TABLET PO SCH ×2 (08:28→19:50)
[2021-08-07] MEDS: Apixaban 5 MG TABLET PO SCH (08:28)
[2021-08-07] MEDS: Cholecalciferol (D-3) 1,000 UNIT (25MCG) TABLET PO SCH (08:28)
[2021-08-07] MEDS: Piperacillin/Tazobactam 3.375 GM in 0.9 % Sodium Chloride Mini Bag 100 ML IVPB SCH ×2 (08:28→15:43)
[2021-08-07] MEDS: Famotidine 20 MG TABLET PO SCH (08:28)
[2021-08-07] MEDS ORDERED: levoFLOXacin 750 MG TABLET PO SCH (09:00)
[2021-08-07] MEDS ORDERED: Metoprolol XL (24 HR) Succ 25 MG TAB.ER.24H PO SCH (09:00)
[2021-08-07] MEDS ORDERED: 0.9 % Sodium Chloride 250 ML ONE (10:36)
[2021-08-07] MEDS ORDERED: Metoprolol XL (24 HR) Succ 25 MG TAB.ER.24H PO ONE (10:45)
[2021-08-07] MEDS ORDERED: 0.9 % Sodium Chloride 250 ML IVC ONE (10:50)
[2021-08-07] MEDS: Ibuprofen 800 MG TABLET PO PRN (11:01)
[2021-08-07] MEDS ORDERED: Perflutren Lipid Microsphere 1.3 ML in 0.9 % Sodium Chloride 8.7 ML IVP PRN (11:31)
[2021-08-07] MEDS ORDERED: *HR* Metoprolol 5 MG/5 ML VIAL IVP ONE (12:16)
[2021-08-07 14:21] LABS: Bilirubin,Urine Negative (Negative); Blood,Urine Negative (Negative); Clarity,Urine Clear (Clear); Color,Urine Light-Yellow (Yellow); Glucose,Urine (UA) Normal (Normal); Ketones,Urine Negative (Negative); Leukocyte Esterase,Urine Negative (Negative); Nitrite,Urine Negative (Negative); Protein,Urine Negative (Neg-Trace); Specific Gravity,Urine 1.012 (1.010-1.025); Urobilinogen,Urine Normal (Normal)
[2021-08-07] MEDS: 0.9 % Sodium Chloride 1,000 ML IVC SCH (14:37)
[2021-08-07 14:50] LABS: Amphetamine Screen,Urine Negative ng/mL (Cutoff=1000); Barbiturate Screen,Urine Negative ng/mL (Cutoff=200); Benzodiazepines Screen,Urine Negative ng/mL (Cutoff=200); Cannabinoid Screen,Urine Negative ng/mL (Cutoff = 50); Cocaine Screen,Urine Negative ng/mL (Cutoff= 300); Opiate Screen,Urine Positive ng/mL (Cutoff=300); Phencyclidine Screen,Urine Negative ng/mL (Cutoff=25)
[2021-08-07] MEDS ORDERED: *HR* Digoxin 0.5 MG/2 ML AMPUL IVP ONE (15:31)
[2021-08-07] MEDS: Metoprolol XL (24 HR) Succ 25 MG TAB.ER.24H PO SCH (19:51)
[2021-08-07] MEDS ORDERED: *HR* Heparin 5,000 UNIT/ML VIAL IVP PRN ×2 (21:00)
[2021-08-07] MEDS: Heparin 25,000UNIT/250ML 1/2NS 25,000 UNIT/250 ML IV.SOLN IVC SCH (21:06)
[2021-08-07 21:13] LABS: INR 1.6; Prothrombin Time 18.8 Seconds (9.4-12.1)
[2021-08-07 21:15] LABS: Activated Partial Thrombo Time 34.8 Seconds (26.0-36.0)
[2021-08-08] MEDS: Ipratropium 1 PUFF INHALER IH SCH ×7 (00:26→23:22)
[2021-08-08] MEDS: Piperacillin/Tazobactam 3.375 GM in 0.9 % Sodium Chloride Mini Bag 100 ML IVPB SCH ×3 (00:44→16:23)
[2021-08-08] MEDS: 0.9 % Sodium Chloride 1,000 ML IVC SCH (00:44)
[2021-08-08] MEDS: Metoprolol XL (24 HR) Succ 25 MG TAB.ER.24H PO SCH ×2 (08:55→20:35)
[2021-08-08] MEDS: Cholecalciferol (D-3) 1,000 UNIT (25MCG) TABLET PO SCH (08:55)
[2021-08-08] MEDS: Colchicine 0.6 MG TABLET PO SCH ×2 (08:56→20:35)
[2021-08-08] MEDS: Multivit/Ca/Min/Fe/FA 1 TAB TABLET PO SCH (08:56)
[2021-08-08] MEDS: Famotidine 20 MG TABLET PO SCH (08:56)
[2021-08-08 09:06] LABS: Basophils # 0.1 K/mcL (0.0-0.2); Basophils % 0.7 %; Eosinophils # 0.6 K/mcL (0.0-0.6); Eosinophils % 8.6 %; Hematocrit 32.8 % (37.5-50.1); Hemoglobin 10.3 g/dL (12.9-16.9); Immature Granulocytes % 0.7 % (0-4); Lymphocytes # 0.4 K/mcL (0.6-4.6); Lymphocytes % 4.9 %; Mean Corpuscular HGB Conc 31.4 g/dL (31.6-35.5); Mean Corpuscular Hemoglobin 28.7 pg (28.0-33.3); Mean Corpuscular Volume 91.4 fL (83.0-100.0); Mean Platelet Volume 9.2 fL (9.4-12.4); Monocytes # 0.7 K/mcL (0.0-1.3); Monocytes % 10.1 %; Neutrophils # 5.5 K/mcL (1.6-8.9); Platelet Count 204 K/mcL (140-400); Red Blood Count 3.59 M/mcL (4.19-5.50); White Blood Count 7.3 K/mcL (4.3-11.1)
[2021-08-08 09:24] LABS: BUN/Creatinine Ratio 9 (6-26); Blood Urea Nitrogen 10 mg/dL (8-23); Calcium 8.3 mg/dL (8.6-10.3); Carbon Dioxide 26 mEq/L (23-29); Chloride 107 mEq/L (98-107); Glucose 92 mg/dL (70-105); Osmolality,Calculated 281 (280-300); Sodium 136 mEq/L (136-145); eGFR For African Americans > 60 (> 60); eGFR For Non-African Americans > 60 (> 60)
[2021-08-08] MEDS: Heparin 25,000UNIT/250ML 1/2NS 25,000 UNIT/250 ML IV.SOLN IVC SCH (16:24)
[2021-08-08] MEDS ORDERED: Perflutren Lipid Microsphere 1.3 ML in 0.9 % Sodium Chloride 8.7 ML IVP PRN (17:11)
[2021-08-09] MEDS: Piperacillin/Tazobactam 3.375 GM in 0.9 % Sodium Chloride Mini Bag 100 ML IVPB SCH ×3 (00:21→17:07)
[2021-08-09] MEDS: Ipratropium 1 PUFF INHALER IH SCH ×5 (03:32→20:00)
[2021-08-09] MEDS: Cholecalciferol (D-3) 1,000 UNIT (25MCG) TABLET PO SCH (07:42)
[2021-08-09] MEDS: Colchicine 0.6 MG TABLET PO SCH ×2 (07:42→21:39)
[2021-08-09] MEDS: Multivit/Ca/Min/Fe/FA 1 TAB TABLET PO SCH (07:42)
[2021-08-09] MEDS: Famotidine 20 MG TABLET PO SCH (07:42)
[2021-08-09] MEDS: Metoprolol XL (24 HR) Succ 25 MG TAB.ER.24H PO SCH ×2 (07:42→21:39)
[2021-08-09] MEDS: Heparin 25,000UNIT/250ML 1/2NS 25,000 UNIT/250 ML IV.SOLN IVC SCH (09:50)
[2021-08-09] MEDS: Ibuprofen 800 MG TABLET PO PRN (11:34)
[2021-08-09] MEDS: Apixaban 5 MG TABLET PO SCH ×2 (17:07→18:53)
[2021-08-09] MEDS: Acetaminophen 325 MG TABLET PO PRN (21:39)
[2021-08-10] MEDS: Ipratropium 1 PUFF INHALER IH SCH ×4 (00:21→11:13)
[2021-08-10] MEDS: Piperacillin/Tazobactam 3.375 GM in 0.9 % Sodium Chloride Mini Bag 100 ML IVPB SCH ×2 (00:24→08:47)
[2021-08-10 07:01] VITALS: BP 120/74; PULSE 64; TEMP 99.2
[2021-08-10] MEDS: Metoprolol XL (24 HR) Succ 25 MG TAB.ER.24H PO SCH (08:47)
[2021-08-10] MEDS: Famotidine 20 MG TABLET PO SCH (08:47)
[2021-08-10] MEDS: Multivit/Ca/Min/Fe/FA 1 TAB TABLET PO SCH (08:47)
[2021-08-10] MEDS: Colchicine 0.6 MG TABLET PO SCH (08:47)
[2021-08-10] MEDS: Apixaban 5 MG TABLET PO SCH (08:47)
[2021-08-10] MEDS: Cholecalciferol (D-3) 1,000 UNIT (25MCG) TABLET PO SCH (08:47)
[2021-08-10 14:46] VITALS: O2SAT 97
== END 2021-08-10 13:15 | disposition home or self-care (01) | DRG 314 ==
LOC: 2ANU 18:50 → EMEROOARM 18:50 → SUATTDRO 08-06 01:52 → 2ANU 08-06 03:17 → 2NNU 08-07 18:37 → 2ANU 08-08 17:04
PROVIDERS: ADMIT Family Medicine; ATTEND Internal Medicine